=== PATIENT | male | born 1990 | race Caucasian/White ===

== ENCOUNTER 2017-03-07 22:59 | Emergency (ER) | payer OTHER ==
[~2017-03-07] VITALS: Ht 175.3 cm; Wt 92.5 kg
[~2017-03-07 22:59] MED LIST: BUPROPION XL150 MG PO; FLUOXETINE HCL20 M2 PO; LEXAPRO10 M1 PO; MULTI-DAY VITA1 EACH PO; TRAZODONE HCL150 M1 PO; VITAMIN B COMP1 EACH PO
[2017-03-07] MEDS ORDERED: PROZAC40 M1 PO (23:04)
[2017-03-07] MEDS ORDERED: TRAZODONE HCL150 M1 PO (23:04)
--- NOTE | 2017-03-07 23:06 | ED PSYCHIATRIC COMPLAINT ---
See Addendum History of Present Illness General Chief Complaint: Psychiatric Related Complaint Stated Complaint: PSYCH EVAL Source: patient Exam Limitations: poor historian Vital Signs & Intake/Output Vital Signs & Intake/Output Vital Signs Date Time Temp Pulse Resp B/P B/P Pulse O2 O2 Flow FiO2 Mean Ox Delivery Rate 03/07 2309 98.1 124 20 152/89 95 Room Air ED Intake and Output 03/08 0000 03/07 1200 Intake Total 0 Output Total Balance 0 Intake, Oral 0 Patient 204 lb Weight Weight Estimated Measurement Method Allergies Coded Allergies: NO KNOWN ALLERGIES (09/28/16) Reconcile Medications Fluoxetine HCl (Prozac) 40 MG CAPSULE 1 CAP PO DAILY MENTAL HEALTH (Reported) Trazodone HCl 150 MG TABLET 1 TAB PO QPM SLEEP (Reported) Triage Nurses Notes Reviewed? yes Onset: Abrupt Duration: unknown duration Timing: recent history HPI: 03/07/17 11:30 PM 26-year-old male presents to the emergency department for depression and suicidal ideation. According to the patient, he said that he states that he will tell people what they want to hear and then just go home and hang myself. The onset of the symptoms were abrupt, the duration is unclear, the severity is significant as his symptoms required him to come to the emergency department for care. He has associated depression and suicidal ideation. He says that he is on Prozac and trazodone, he did take it tonight. He is agitated and refusing to gown Past History Medical History Any Pertinent Medical History? see below for history Psychiatric: bipolar disease, depression Influenza Vaccine: 10/06/09 Surgical History Surgical History: non-contributory Psychosocial History Who do you live with Family Services at Home None What is your primary language [place] Family History Hx Contributory? No Review of Systems Review of Systems Constitutional: Denies: fever. EENTM: Reports: no symptoms. Respiratory: Reports: no symptoms. Cardiovascular: Reports: no symptoms. GI: Reports: no symptoms. Genitourinary: Reports: no symptoms. Musculoskeletal: Reports: no symptoms. Skin: Reports: no symptoms. Neurological/Psychological: Reports: depressed. Hematologic/Endocrine: Reports: no symptoms. Immunologic/Allergic: Reports: no symptoms. Physical Exam Physical Exam General Appearance: well developed/nourished, alert, awake, anxious, moderate distress Head: atraumatic, normal appearance Eyes: Bilateral: normal appearance, PERRL, EOMI. Ears, Nose, Throat: normal pharynx, normal ENT inspection Neck: normal inspection, supple, full range of motion Respiratory: normal breath sounds, chest non-tender, no respiratory distress Cardiovascular: regular rate/rhythm Gastrointestinal: soft, non-tender Extremities: normal range of motion Neurological/Psychiatric: awake, agitated, depressed affect Appearance/Memory/Insight: disheveled Behavoir/Eye Contact/Speech: uncooperative Thoughts/Hallucinations: no apparent hallucination Skin: intact SAD PERSONS SAD PERSONS Response Value Male Sex? yes 1 Depression/Hopelessness? yes 2 Previous Attempts/Psych Care yes 1 Excessive Ethanol/Drug Use? yes 1 Rational Thinking Loss? yes 2 Single//? yes 1 Social Support? has no support 1 Stated Future Intent? yes 2 Total 11 SAD PERSONS Done? yes Progress Differential Diagnosis: drug intoxication, drug overdose, drug withdrawal, depression Plan of Care: Orders Procedure Date/time Status Continuous Observation Monitor 03/07 2333 Active URINE DRUG SCREEN FOR ER ONLY 03/07 2333 Complete ETHANOL 03/07 2333 Complete COMPREHENSIVE METABOLIC PANEL 03/07 2333 Complete CBC WITHOUT DIFFERENTIAL 03/07 2333 Complete Laboratory Tests 03/08/17 0007: Urine Opiates Screen < 100.00, Methadone Screen < 40, Barbiturate Screen < 60, Ur Phencyclidine Scrn < 6.00, Amphetamines Screen < 100, U Benzodiazepines Scrn < 85, Urine Cocaine Screen < 50, Urine Cannabis Screen < 5.00 03/07/17 2344: Anion Gap 19 H, Estimated GFR > 60, BUN/Creatinine Ratio 11.3, Glucose 97, Calcium 9.4, Total Bilirubin 0.5, AST 22, ALT 31, Alkaline Phosphatase 103, Total Protein 8.6 H, Albumin 5.0, Globulin 3.6, Albumin/Globulin Ratio 1.4, CBC w Diff NO MAN DIFF REQ, RBC 5.34, MCV 84.4, MCH 29.6, RDW 12.7, MPV 7.9, Gran % 57.1, Lymphocytes % 30.6, Monocytes % 10.7 H, Eosinophils % 0.4, Basophils % 1.2, Absolute Granulocytes 3.5, Absolute Lymphocytes 1.9, Absolute Monocytes 0.6 , Absolute Eosinophils 0, Absolute Basophils 0.1, PUBS MCHC 35.1, Serum Alcohol 115.0 Initial ED EKG: none Departure Departure Disposition: STILL A PATIENT Condition: Stable Clinical Impression Primary Impression: Depression (emotion) Secondary Impressions: Agitation requiring sedation protocol Referrals: PATIENT HAS NO PRIMARY CARE DR (PCP/Family) Departure Forms: Customer Survey General Discharge Information
[2017-03-07 23:55] LABS: ABSOLUTE BASOPHIL COUNT 0.1 /CUMM (0.0-0.2); ABSOLUTE EOSINOPHIL COUNT 0 /CUMM (0.0-0.7); ABSOLUTE GRANULOCYTE CT 3.5 /CUMM (1.4-6.5); ABSOLUTE LYMPH COUNT 1.9 /CUMM (1.2-3.4); ABSOLUTE MONOCYTE COUNT 0.6 /CUMM (0.10-0.60); BASOPHIL % 1.2 % (0.0-2.0); EOSINOPHIL % 0.4 % (0-5); GRANULOCYTE % 57.1 % (42.2-75.2); HEMATOCRIT 45.1 % (42-52); MEAN CORPUSCULAR HGB 29.6 PG (27.0-31.0); MEAN CORPUSCULAR HGB CONC 35.1 G/DL (33.0-37.0); MEAN CORPUSCULAR VOLUME 84.4 FL (80.0-94.0); MEAN PLATELET VOLUME 7.9 FL (7.4-10.4); PLATELET COUNT 433 /CUMM (130-400); RBC DISTRIBUTION WIDTH 12.7 % (11.5-14.5); RED BLOOD CELL CT 5.34 /CUMM (4.70-6.10); WHITE BLOOD CELL COUNT 6.1 /CUMM (4.8-10.8)
--- NOTE | 2017-03-08 10:24 | ED PSY CRISIS COLLATERAL NOTE ---
Collateral Note Collateral Note Family/Inform/Rosa Contacts: This clinician spoke mother Taryn Fowler who reported she was sleeping when the suture winder hand came to her home. She reports the police responded to a 911 called placed by her son. The mother states her son called 911 and said he shot himself. She reports the son has a history of depression and (2) years ago he hung himself in the garage and the mother cut him down from the rope. She reports another suicide attempt by taking pills. She states he has been making suicidal statements " I want to " and spends alot time home alone.
--- NOTE | 2017-03-08 11:36 | ED PSYCH CRISIS CONSULTATION ---
Crisis Consult Basic Assessment Date of Consult: 03/08/17 Responsible Person/Accompanied By: self Insurance Authorization: Insurance #1: Insurance name: BARBIE NASH Phone number: Policy number: [id number] Group number: [id number] Authorization number: ED Provider: Patient's ED Provider: BUSHRA LATIF DO Primary Care Physician: Patient's PCP: PATIENT HAS NO PRIMARY CARE DR PCP's Phone Number: Current Psychiatrist: Dr. Virginia Yadav Chief Complaint: Psychiatric Related Complaint Patient's Quote: " I want to go home" Present Illness: Pt is a 26-year-old male BIBA on a Police Emergency Examination Request. The Pt called 911 to and stated he was shot; the police arrived to the home and the Pt was not shot. The Pt then asked the police matron to shoot him. He presents to the emergency department for depression and suicidal ideation. The Pt stated to the nursing department he will tell crisis he is fine, so he can be discharged and once he gets home, he will hang himself. The Pt upon interview denied any suicidal ideation, homicidal ideation, denied auditory and visual hallucination. He reports he was just playing with the precise winder. He reports drinking Alcohol last night and denies any other current substance abuse problem. He reports a history of abusing Cannabis abuse. He is very anxious to be discharge from the hospital. He reports a history of (2) previous suicide attempts. According to collateral mother Taryn Fowler the Pt attempted to hang himself (2) years ago and the mother had to cut him down from the rope. The Pt reports being treated at the [facility] for Bipolar and Depression. Patient's Address: [address] [place] [address] Other Phone Number: Who Do You Live With? Family Family/Informants Interviewed: mother Taryn Fowler [phone] Allergies - Coded Allergies: NO KNOWN ALLERGIES (09/28/16) Current Medications - Scheduled Medications Fluoxetine HCl (Prozac) 40 MG CAPSULE 1 CAP PO DAILY MENTAL HEALTH (Reported) Entered as Reported by VLAD BURTON on 03/07/17 2767 Trazodone HCl 150 MG TABLET 1 TAB PO QPM SLEEP (Reported) Entered as Reported by VLAD BURTON on 03/07/17 2304 Laboratory Results: Laboratory Tests 03/08/17 0007: Urine Opiates Screen < 100.00, Methadone Screen < 40, Barbiturate Screen < 60, Ur Phencyclidine Scrn < 6.00, Amphetamines Screen < 100, U Benzodiazepines Scrn < 85, Urine Cocaine Screen < 50, Urine Cannabis Screen < 5.00 03/07/17 2344: Anion Gap 19 H, Estimated GFR > 60, BUN/Creatinine Ratio 11.3, Glucose 97, Calcium 9.4, Total Bilirubin 0.5, AST 22, ALT 31, Alkaline Phosphatase 103, Total Protein 8.6 H, Albumin 5.0, Globulin 3.6, Albumin/Globulin Ratio 1.4, CBC w Diff NO MAN DIFF REQ, RBC 5.34, MCV 84.4, MCH 29.6, RDW 12.7, MPV 7.9, Gran % 57.1, Lymphocytes % 30.6, Monocytes % 10.7 H, Eosinophils % 0.4, Basophils % 1.2, Absolute Granulocytes 3.5, Absolute Lymphocytes 1.9, Absolute Monocytes 0.6 , Absolute Eosinophils 0, Absolute Basophils 0.1, PUBS MCHC 35.1, Serum Alcohol 115.0 (BRANDI PURNIMA,ASHLEE) Addendum Note Addendum Patient was re-interviewed this morning. As per his discussion with Dr Bradley yesterday, patient again states that he did not really mean any harm, and that he sees that it "was a really stupid thing to do", but currently wants discharge. Patient states that he knows that he should not be drinking at all, and especially on medication, but that he admits that several times per month buys shots in order to get really drunk. "It seems to take more and more as I'm a fairly big carina". 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 Patient was arrested for filing a false report, due to repoting to the police that he had been shot at, although this was not the case as does do "some stupid things when he drinks", but continues to do this. I informed patient that the psychiatrist who had seen him yesterday felt that he needed to be hospitalized, and that he is on a committment paper. I told him that it was his chance to talk with another doctor today, if he is not placed soon; but that it was highly unlikely that patient would discharged from [facility]. We have no beds here, so we are referring him to another [facility] facility. Patient had impish grin on face, as if this were a comoical situation (i.e. calling police with fase report). He is concerned about his 2 dogs at home, but he lives with brother, so the dogs will be o. k. (MODESTO MS,HEVER Meléndez) Addendum Addendum 03/09/17 Crisis Revaluation Pt presented alert, oriented and cooperative with goal directed speech. Pt reports his mood as "no longer upset" and stated he understands the need for hospitalization. The pt denies SI, HI, AH, VH and paranoia. The pt stated he is hoping for a short hospital stay. The pt has been cooperative with staff since his initial irritability upon arrival to the ED on 03/07/17. Pt lives with his mother and stated she is supportive of him and he is happy to return living with her after his discharge. Pt remains on a PEC. (ITZ RIDDLE,HEVER CHAPPELL) Addendum 03/09/17 7:00pm Pt seen by Crisis on the Evening Shift. Pt was told that the bed search had been conducted and that no hospitals had accepted him for tonight and so he would be held over in the ED until tomorrow. Pt. said that he did not want to stay until tomorrow and asked if he could be dischrged [facility]. Crisis consulted with Dr. Lara who said that due to pt's suicidal statements upon arrival to the ED and his withholding information about previous suicide attempts, he would have to stay in the ED tonight as he was still at current risk of harm to himself. Pt. said that he understood and agreed to stay. He offered no other complaints. (DIANNE MONTES DE OCA,NAYELY) Past History Past Medical History Psychiatric: bipolar disease, depression, substance abuse Past Surgical History Surgical History: non-contributory Psychosocial History Strengths/Capabilities: currently being treated in the community, supportive mother. Psychiatric Treatment History Psych Treatment Psychiatric Treatment Yes Inpatient Treatment No Outpatient Treatment Yes Location of Treatment [place] Reason for Treatment Bipolar Disorder and Depression Dates of Treatment currently being treated at [facility] Response to Treatment poor Diagnosis by History: Depression Disorder Substance Use/Abuse History Drug Use/Abuse Substances Used/Abused Yes Substance Used/Abused Alcohol First Use 16 Last Used 03/07/2017 How much used/taken unknown How often unknown For how long unknown Route of use oral Substance Abuse Treatment Substance Abuse Treatment Past Substance Abuse TX No Inpatient Treatment No Outpatient Treatment No Location of Treatment none Reason for Treatment none Dates of Treatment none Response to Treatment none (ASHLEE CAMACHO) Current Mental Status Mental Status Orientation: Person, Place, Situation Affect: Anxious, Angry, Depressed Speech: Pressured Neuro-vegetative: Appetite Decreased Appearance Appearance- Dress/Hygiene: Dressed in hospital clothing Behaviors Thought Process: WNL Thought Content: WNL Memory: WNL Insight: Poor SI/HI Risk Assessment Past Suicidal Ideation/Attempts Yes Current Suicidal Ideation/Att Yes Past Homicidal Ideation/Att: No Current Homicidal Ideation/Attempts No Degree of Intent: Plan, States Intent Danger To: Self Gravely Disabled: Lack of Insight, Poor Impulse Control, Poor Judgment Risk Factors: high anxiety/distress, history of suicide atmpts, SA/MH hospitalized, substance abuse, poor impulse control Lethality Ratin PTSD Checklist PTSD Score: PTSD Score: Response Value Disturbing memories,thoughts,images of stressful experience? Not at all 1 Disturbing dreams of stressful experience from past? Not at all 1 Suddenly acting/feeling as if reliving stressful experience? Not at all 1 Total 3 PTSD Done? patient declined ED Management Sitter: Yes Restraints: No (ASHLEE CAMACHO) DSM5/PS Stressors/Medical Prob Diagnosis' (DSM 5, Stressors, Medical): Depression Disorder Unspecified F32.9 Current GAF: 25 (ASHLEE CAMACHO) Departure Disposition Psych Medical Clearance Date: 03/08/17 Medically Cleared at: 1000 Time Started: 1000 Time Ended: 1100 Psychiatrist Consulted: Dr. Virginia Davison Date Disposition Established: 03/08/17 Time Disposition Established: 1100 Plan for Disposition - Modality: Bed Search Rationale for Disposition: Pt is a 26-year-old male BIBA on a Police Emergency Examination Request. The Pt called 911 to and stated he was shot; the police arrived to the home and the Pt was not shot. The Pt then asked the police matron to shoot him. He presents to the emergency department for depression and suicidal ideation. The Pt stated to the nursing department he will tell crisis he is fine, so he can be discharged and once he gets home, he will hang himself. The Pt upon interview denied any suicidal ideation, homicidal ideation, denied auditory and visual hallucination. He reports he was just playing with the precise winder. He reports drinking Alcohol last night and denies any other current substance abuse problem. He reports a history of abusing Cannabis abuse. He is very anxious to be discharge from the hospital. He reports a history of (2) previous suicide attempts. According to collateral mother Taryn Fowler the Pt attempted to hang himself (2) years ago and the mother had to cut him down from the rope. The Pt reports being treated at the [facility] for Bipolar and Depression. Consulted with Dr. Virginia Yadav for inpatient psychiatric treatment . Type of IP Admission: PEC Referrals PATIENT HAS NO PRIMARY CARE DR (PCP/Family) (ASHLEE CAMACHO)
--- NOTE | 2017-03-09 17:21 | ED PSYCHIATRIST/APRN CONSULT ---
Psychiatrist/BEHAVIORAL THERAPIST ED Consult Assessment and Plan: Patient seen 03/08 and 03/09. Note for 03/08: 26 y/o man w/ hx depressive illness, admitted after he had called police and stated that he was shot. He state that he was "joking" b/c he was so intoxicated and did not mean anything. He was brought in for suicidla thinking. He had told nurse on admission that he will say what he has to and then hang himself. He was intoxicated on admission. He stated that he generally binge drinks a few times per month but does not regularly drink. He stated that he has been doing well otherwise and minimized/denied any other sx. Per collateral, he had a serious suicide attempt where he tried to hang self and mother had to cut him down in the past. He also had past psychiatric tx. He has been on trileptal 600mg twice daily, prozac in the past. He stated that he "didnt mean" anything and continued to deny any SI. Due to his high risk history and statements about wanting to hang self, telling police he wanted to commit suicide, recent etoh and poor outpatient adherence to tx, poor frustration tolerance and impaired impulse control (he was very irritable in the ER and needed medication), consider that he is at risk of violence to self and need IP admission. Re- started trileptal 150mg twice daily and prozac; started ciwa scale. Note 03/09: Patient re-evaluated. His mental status appeared similar, future oriented, denying any past mental health sx and minimizing recent events, denying active sx. He stated that he has court tmr and needs to go; that he needs to feed his dog (brother is caring for dog) but did admit that he made a mistake and would benefit from tx. He has had no further behavior issues since being in the ER. His MSE is significant for irritability which is mild, but otherwise goal directed, linear and without overt psychotic sx. We discussed his behavior and recent clinical status - discussed that his behavior has been erratic, has had serious suicide attempt and etoh use which increases his risk of self harm. He continued to deny making any statements and denied current suicidal thoughts. Discussed a brief admission to stabilize his recent decomp precipitated by alcohol use and several days med non adherence; with re-eval tmr for baseline status from mother and perhaps an outpatient provider. Will increase trileptal to 300mg twice daily.
[2017-03-10 18:39] VITALS: BP 119/76
[2017-04-30] MEDS ORDERED: OXCARBAZEPINE600 M1 PO (14:04)
[2017-04-30] MEDS ORDERED: OXCARBAZEPINE300 M1 PO (14:04)
[2017-04-30] MEDS ORDERED: BUPROPION XL150 MG PO (14:04)
[2017-04-30] MEDS ORDERED: AUGMENTIN 875-1 EACH PO (15:20)
[2017-04-30] MEDS ORDERED: OXYCODONE HCL5 M1 PO (15:20)
[2017-04-30] MEDS ORDERED: NAPROSYN500 M1 PO (17:47)
== END 2017-03-10 19:21 | disposition other institution (70) ==
LOC: ERH 22:59
PROVIDERS: Emergency Medicine
DX: F32.9 Major depressive disorder, single episode, unspecified (principal); R45.1 Restlessness and agitation; R45.851 Suicidal ideations
CPT/HCPCS: 80307; 96372; 99291; G0463; G0480; J1200; J1630

== ENCOUNTER 2017-12-17 15:42 | Inpatient (IN) | payer OTHER ==
[~2017-12-17] VITALS: Ht 180.3 cm; Wt 116.7 kg
[~2017-12-17 15:42] MED LIST changes: +AUGMENTIN 875-1 EACH PO; +NAPROSYN500 M1 PO; +OXCARBAZEPINE300 M1 PO; +OXCARBAZEPINE600 M1 PO; +OXYCODONE HCL5 M1 PO; +PROZAC40 M1 PO
--- NOTE | 2017-12-17 16:05 | ED PSYCHIATRIC COMPLAINT ---
History of Present Illness General Chief Complaint: Psychiatric Related Complaint Stated Complaint: BIBA, +SI Source: patient Exam Limitations: no limitations Vital Signs & Intake/Output Vital Signs & Intake/Output Vital Signs Date Time Temp Pulse Resp B/P B/P Pulse O2 O2 Flow FiO2 Mean Ox Delivery Rate 12/18 1046 97.8 80 20 142/65 96 Room Air 12/18 0849 98.2 90 18 114/71 96 Room Air 12/18 0556 97.3 74 20 117/58 98 Room Air 12/17 2141 98.1 96 18 146/91 12/17 2141 97.8 96 18 146/91 96 Room Air 12/17 1556 98.3 93 16 147/90 98 Room Air ED Intake and Output 12/18 0000 12/17 1200 Intake Total 0 Output Total Balance 0 Intake, Oral 0 Allergies Coded Allergies: NO KNOWN ALLERGIES (09/28/16) Triage Note: PT BIBA ON A PEER. PER EMS REPORT PT "WALKED OUT OF [facility] MAKING SUICIDAL COMMENTS". PER EMS REPORT PT HAS HX OF ETOH ABUSE AND RELAPSED TODAY. PT ARRIVES CALM AND COOPERATIVE. A&OX3 SPEAKING IN FULL COMPLETE SENTNCES. CHANGED INTO PAPER SCRUBS. WANDED BY SECURITY. BELONGINGS SECURED. PEER PLACED IN CAROLIN BOX TWO COPIES PLACED IN CHART. Triage Nurses Notes Reviewed? yes Onset: Gradual Duration: week(s): Timing: recent history Severity: mild HPI: 27yo male with hx of bipolar disease, depression BIBA on PEER complaining of suicidal ideation. Patient states that he was recently in a two-month program for alcohol abuse and was sober throughout program. Patient had a schedule appointment with a new provider today. Patient recently relapsed on drinking alcohol over the weekend because it was his birthday. He informed new provider that he had suicidal ideation and it was recommended that he come here to the ER. Patient went home and was brought in by police for his SI. Patient reports he has had suicidal ideation 4 weeks, he states he has no real suicidal intent, he has no plans and does not ever believe he would act on any plans. Patient does report one prior suicide attempt however he does not wish to discuss details at this time. Patient denies HI, or illicit drug use, recent illness. (Yocasta CRAVEN,Chioma Hernandez) Reconcile Medications Bupropion HCl (Bupropion XL) 150 MG TAB.ER.24H 1 TAB PO DAILY MENTAL HEALTH ( Reported) Fluoxetine HCl (Prozac) 40 MG CAPSULE 1 CAP PO DAILY MENTAL HEALTH (Reported) Oxcarbazepine 600 MG TABLET 1 TAB PO DAILY MENTAL HEALTH (Reported) Oxcarbazepine 300 MG TABLET 3 TAB PO QPM MENTAL HEALTH (Reported) Trazodone HCl 150 MG TABLET 1 TAB PO QPM SLEEP (Reported) (Lou GENTILE,Lavell Murray) Past History Travel History Traveled to [place] past 21 day No Medical History Any Pertinent Medical History? see below for history Psychiatric: bipolar disease, depression, substance abuse Tetanus Vaccine: 04/30/17 Surgical History Surgical History: non-contributory Psychosocial History Who do you live with Family Services at Home None What is your primary language Beninese Tobacco Use: Current Daily Use Daily Tobacco Use Amount/Type: => 5 Cigarettes daily Family History Hx Contributory? No (Chioma Carmona) Review of Systems Review of Systems Constitutional: Reports: no symptoms. EENTM: Reports: no symptoms. Respiratory: Reports: no symptoms. Cardiovascular: Reports: no symptoms. GI: Reports: no symptoms. Genitourinary: Reports: no symptoms. Musculoskeletal: Reports: no symptoms. Skin: Reports: no symptoms. Neurological/Psychological: Reports: see HPI. Hematologic/Endocrine: Reports: no symptoms. Immunologic/Allergic: Reports: no symptoms. All Other Systems: Reviewed and Negative (Chioma Carmona) Physical Exam Physical Exam General Appearance: well developed/nourished, no apparent distress, alert, awake Head: atraumatic, normal appearance Eyes: Bilateral: normal appearance. Ears, Nose, Throat: hearing grossly normal Neck: normal inspection, supple, full range of motion Respiratory: normal breath sounds, no respiratory distress, lungs clear Cardiovascular: regular rate/rhythm Gastrointestinal: normal bowel sounds, soft, non-tender, no organomegaly Extremities: normal range of motion Neurological/Psychiatric: awake, alert, normal mood/affect, calm Appearance/Memory/Insight: appropriate appearance, appropriate insight Behavoir/Eye Contact/Speech: normal speech, good eye contact Thoughts/Hallucinations: normal thought pattern, no apparent hallucination Skin: intact, normal color, warm/dry SAD PERSONS SAD PERSONS Response Value Male Sex? yes 1 Depression/Hopelessness? yes 2 Previous Attempts/Psych Care yes 1 Single//? yes 1 Social Support? has support 0 Total 5 SAD PERSONS Done? yes (Yocasta CRAVEN,Chioma Hernandez) Progress Differential Diagnosis: drug intoxication, drug overdose, drug withdrawal, electrolyte abnormality, encephalitis, suicidal ideation, depression Plan of Care: Orders Procedure Date/time Status Regular Diet 12/18 B Active Admit to inpatient psych 12/18 1103 Active Restraint- Discontinue 12/17 2252 Active Restraint- Behavioral (Renew) 12/17 2139 Active Restraint- Behavioral (Order) 12/17 1940 Active ED CRISIS PSYCH CONSULT 12/17 1734 Active ED CRISIS PSYCH CONSULT 12/17 1717 Active Continuous Observation Monitor 12/17 1604 Active URINE DRUG SCREEN FOR ER ONLY 12/17 1604 Complete ETHANOL 12/17 160 Complete COMPREHENSIVE METABOLIC PANEL 12/17 1604 Complete CBC WITHOUT DIFFERENTIAL 12/17 1604 Complete Current Medications Sig/Chiara Start time Last Medication Dose Stop Time Status Admin Bupropion HCl 300 MG 0800 / 0800 UNVr 12/18 (Wellbutrin XL) 0900 Oxcarbazepine 300 MG 0800 / 0800 UNVr 12/18 (Trileptal 150MG Tab) 0900 Oxcarbazepine 900 MG QPM 12/17 2200 UNVr 12/17 (Trileptal 150MG Tab) 2141 Prazosin HCl 2 MG AT BEDTIME 12/17 2199 UNVr 12/17 (Minipress 1 MG) 214 Trazodone HCl 75 MG AT BEDTIME 12/17 220 UNVr 12/17 (Desyrel) 2141 Gabapentin 400 MG Q8 PRN 12/17 1900 AC (Neurontin) Laboratory Tests 12/17/17 1708: Anion Gap 16, Estimated GFR > 60, BUN/Creatinine Ratio 12.9, Glucose 92, Calcium 9.9, Total Bilirubin 0.3, AST 23, ALT 33, Alkaline Phosphatase 90, Total Protein 8.0, Albumin 5.0, Globulin 3.0, Albumin/Globulin Ratio 1.7, CBC w Diff NO MAN DIFF REQ, RBC 5.19, MCV 87.2, MCH 29.3, MCHC 33.7, RDW 13.1, MPV 7.7, Gran % 56.6, Lymphocytes % 32.8, Monocytes % 9.1, Eosinophils % 1.0, Basophils % 0.5, Absolute Granulocytes 3.2, Absolute Lymphocytes 1.8, Absolute Monocytes 0.5, Absolute Eosinophils 0.1, Absolute Basophils 0, Serum Alcohol < 10.0 12/17/17 1707: Urine Opiates Screen < 100.00, Methadone Screen < 40, Barbiturate Screen < 60, Ur Phencyclidine Scrn < 6.00, Amphetamines Screen < 100, U Benzodiazepines Scrn < 85, Urine Cocaine Screen < 50, Urine Cannabis Screen < 5.00 Patient seen and evaluated by crisis and will be hold over until tomorrow morning. 1930 - patient becoming agitated, being his head against the wall, making inappropriate comments and threatening to "run naked through the ER". Patient admits to peeing on the lenz. Patient placed in restraints and medicated with IM haldol, benadryl, ativan. The patient was signed out to Dr. Ambriz pending crisis disposition. (Chioma Carmona) 1:44 AM PENDING CRISIS CONSULTATION IN AM. (Katharina Ambriz MD) Hand-Off Endorsed To: Katharina Ambriz MD Endorsed Time: 0100 Pending: other (ED hold, crisis dispo) (Chioma Carmona) Hand-Off Endorsed To: Lavell Blake MD Endorsed Time: 0700 Pending: consult (CRISIS) (Katharina Ambriz MD) Comments: 12/18/2017 7:23:21 AM patient signed out to me by Dr. Ambriz at shift change control coordinator. pt evaluated by bacteriologist fishery and felt to require admission. (Lavell Blake MD) Departure Departure Disposition: STILL A PATIENT Condition: Stable Referrals: Karrie Hernadez MD (PCP/Family) Departure Forms: Customer Survey General Discharge Information (Chioma Carmona) PA/KEY ACCOUNT DIRECTOR Co-Sign Statement Statement: ED Attending supervision documentation- [X] I saw and evaluated the patient. I have also reviewed all the pertinent lab results and diagnostic results. I agree with the findings and the plan of care as documented in the PA's/KEY ACCOUNT DIRECTOR's documentation. [X] I have reviewed the ED Record and agree with the PA's/KEY ACCOUNT DIRECTOR's documentation. [] Additions or exceptions (if any) to the PAs/KEY ACCOUNT DIRECTOR's note and plan are summarized below: [] (Katharina Ambriz MD) Departure Clinical Impression Primary Impression: Bipolar 1 disorder Secondary Impressions: Alcohol abuse, Suicidal ideation Psych Admission Note Psychiatric Admission: I have reviewed all the pertinent lab results and diagnostic results. ANA LUNA will be admitted to our inpatient Psychiatric unit for treatment and care. (Lou GENTILE,Lavell Murray) Critical Care Note Critical Care Note Critical Care Time: 30-74 min (Katharina Ambriz MD) ED Attending Observation Initial Observation Note: I have seen and personally examined ANA LUNA on 12/17/17 at 2020. I agree with the current emergency department documentation. The disposition (admission or discharge) is uncertain at this time, he needs a period of observation for the following reason(s): The ED Nurse caring for this patient has been personally informed as to what the patient is being observed for. (Katharina Ambriz MD)
[2017-12-17 17:27] LABS: ABSOLUTE BASOPHIL COUNT 0 /CUMM (0.0-0.2); ABSOLUTE EOSINOPHIL COUNT 0.1 /CUMM (0.0-0.7); ABSOLUTE GRANULOCYTE CT 3.2 /CUMM (1.4-6.5); ABSOLUTE LYMPH COUNT 1.8 /CUMM (1.2-3.4); ABSOLUTE MONOCYTE COUNT 0.5 /CUMM (0.10-0.60); BASOPHIL % 0.5 % (0.0-2.0); GRANULOCYTE % 56.6 % (42.2-75.2); HEMATOCRIT 45.2 % (42-52); MEAN CORPUSCULAR HGB 29.3 PG (27.0-31.0); MEAN CORPUSCULAR HGB CONC 33.7 G/DL (33.0-37.0); MEAN CORPUSCULAR VOLUME 87.2 FL (80.0-94.0); MEAN PLATELET VOLUME 7.7 FL (7.4-10.4); PLATELET COUNT 376 /CUMM (130-400); RBC DISTRIBUTION WIDTH 13.1 % (11.5-14.5); RED BLOOD CELL CT 5.19 /CUMM (4.70-6.10); WHITE BLOOD CELL COUNT 5.6 /CUMM (4.8-10.8)
--- NOTE | 2017-12-17 19:52 | ED PSYCH CRISIS CONSULTATION ---
Crisis Consult Basic Assessment Date of Consult: 12/17/17 Responsible Person/Accompanied By: MILDRED Insurance Authorization: Insurance #1: Insurance name: [employer] Phone number: Policy number: [id number] Group number: [id number] Authorization number: ED Provider: Patient's ED Provider: Chioma Carmona Primary Care Physician: Patient's PCP: Karrie Hernadez MD PCP's Current Psychiatrist: Karrie Hernadez MD Chief Complaint: Psychiatric Related Complaint Patient's Quote: "I feel suicidal all the time, I don'thave any plans." Present Illness: Patient is a 27 year old, single, male BIBA on a PEER for SI. He presented to OPS for an intake assessment and expressed SI during the session. Patient left OPS and 911 was called. Patient successfully completed IOP on 12/12/17 and reports relapse on alcohol on 12/13/17. Patient reports chronic SI since 10 years old. He has pending felony charges; prompting minor obscene performance and illegal possession of child pornography 1st degree. His next court date is 02/12/2018. Patient reports feeling "hopeless" due to pending charges and states "I feel disgusting." He reports worsening depression since his arrest and reports daily SI, but denies a plan. He reports relapse on alcohol; "a few beer" on his birthday. He states he uses alcohol to "not feel." Patient states he forgot to take medications today and last night. He states his block layer referred him to see Milena Corbett MD, but does not remember when his next appointment is. He states he does not feel he requires hospitalization and would like to go home. He would like support with alcohol use and willing to return to [facility]. Patient's mother, Taryn Fowler ([phone]) was contacted. She states "he's been telling me he's going to kill himself for a long time." She states the patient lives with her and his father, although patient stated he lives with his brother. Taryn states "he tells stories" and has concerns for patient's safety. She states patient attempted suicide 2 years ago by hanging himself and mother "cut him down." She states patient told her that he's going to attempt suicide again when no one is home, with wire so no one can cut him down. She also believes that his felony charges are reasons why patient is not safe and states he has made comments that if he is sentenced to fci he will kill himself first. Taryn believes patient is a harm to himself and states "I want him to go inpatient." She would like to be contacted with updates. Dr. Becerril was consulted and patient to be re-evaluated in the morning. Patient's Address: [address] [place] [address] Other Phone Number: Who Do You Live With? Family Family/Informants Interviewed: Mother, Taryn Fowler Allergies - Coded Allergies: NO KNOWN ALLERGIES (09/28/16) Laboratory Results: Laboratory Tests 12/17/17 1708: Anion Gap 16, Estimated GFR > 60, BUN/Creatinine Ratio 12.9, Glucose 92, Calcium 9.9, Total Bilirubin 0.3, AST 23, ALT 33, Alkaline Phosphatase 90, Total Protein 8.0, Albumin 5.0, Globulin 3.0, Albumin/Globulin Ratio 1.7, CBC w Diff NO MAN DIFF REQ, RBC 5.19, MCV 87.2, MCH 29.3, MCHC 33.7, RDW 13.1, MPV 7.7, Gran % 56.6, Lymphocytes % 32.8, Monocytes % 9.1, Eosinophils % 1.0, Basophils % 0.5, Absolute Granulocytes 3.2, Absolute Lymphocytes 1.8, Absolute Monocytes 0.5, Absolute Eosinophils 0.1, Absolute Basophils 0, Serum Alcohol < 10.0 12/17/17 1707: Urine Opiates Screen < 100.00, Methadone Screen < 40, Barbiturate Screen < 60, Ur Phencyclidine Scrn < 6.00, Amphetamines Screen < 100, U Benzodiazepines Scrn < 85, Urine Cocaine Screen < 50, Urine Cannabis Screen < 5.00 (Katty MONTES DE OCA,Paola) Current Medications - Scheduled Medications Bupropion HCl (Bupropion XL) 150 MG TAB.ER.24H 1 TAB PO DAILY MENTAL HEALTH # 30 (Reported) Entered as Reported by Jamison Darden on 04/30/17 1404 Fluoxetine HCl (Prozac) 40 MG CAPSULE 1 CAP PO DAILY MENTAL HEALTH (Reported) Entered as Reported by Holly Darnell on 03/07/172303 Oxcarbazepine 600 MG TABLET 1 TAB PO DAILY MENTAL HEALTH #60 (Reported) Entered as Reported by Jamison Darden on 04/30/17 140 Oxcarbazepine 300 MG TABLET 3 TAB PO QPM MENTAL HEALTH (Reported) Entered as Reported by Jamison Darden on 04/30/17 140 Trazodone HCl 150 MG TABLET 1 TAB PO QPM SLEEP (Reported) Entered as Reported by Holly Darnell on 03/07/172303 (Samy MONTES DE OCA,Myesha) Past History Past Medical History Psychiatric: bipolar disease, depression, substance abuse Past Surgical History Surgical History: non-contributory Psychosocial History Strengths/Capabilities: currently being treated in the community, supportive mother. Physical Limitations (Interventions): chronic relapse Psychiatric Treatment History Psych Treatment Psychiatric Treatment Yes Inpatient Treatment Yes Outpatient Treatment Yes Location of Treatment [facility], [facility] Reason for Treatment depression, SI Dates of Treatment hospitalized since the age 10; last hospitalization at [facility] was in 2008 Diagnosis by History: Depression Disorder Substance Use/Abuse History Drug Use/Abuse Substances Used/Abused Yes Substance Used/Abused Alcohol First Use 10 years old Last Used 12/15/17 How much used/taken "a few beers" How often daily For how long since 10 years old, some periods of sobriety Substance Abuse Treatment Substance Abuse Treatment Past Substance Abuse [place] Yes Inpatient Treatment No Outpatient Treatment Yes Location of Treatment [facility], IOP Reason for Treatment alcohol use, cannabis use Dates of Treatment [facility] IOP 10/17/17-12/12/17 Response to Treatment Positive response while in treatment, recent relapse (Paola Alaniz LCSW) Current Mental Status Mental Status Orientation: Person, Place, Situation Affect: Hopeless Speech: WNL Neuro-vegetative: Concentration Poor, Energy Decreased, Sleep Disturbance Appearance Appearance- Dress/Hygiene: Patient appeares discheveled, dressed in hospital scrubs Behaviors Thought Process: WNL Thought Content: WNL Memory: WNL Insight: Fair SI/HI Risk Assessment Past Suicidal Ideation/Attempts Yes Current Suicidal Ideation/Att Yes Past Homicidal Ideation/Att: No Current Homicidal Ideation/Attempts No Degree of Intent: Thoughts/No Intent Risk Factors: high anxiety/distress, history of suicide atmpts, SA/MH hospitalized, substance abuse, isolate/no social support, male, limited support Lethality Ratin PTSD Checklist PTSD Done? pt unable to participate ED Management Sitter: Yes Restraints: No (Paola Alaniz LCSW) DSM5/PS Stressors/Medical Prob Diagnosis' (DSM 5, Stressors, Medical): F31.4 Bipolar Disorder MRE depressed, F10.20 Alcohol use disorder, moderate, F12.11 cannabis use d/o, mild in remission 1 year; HTN, obesity; Primary and secondary relationships, employment, and weight issues, legal charges Current GAF: 25 (Paola Alaniz LCSW) Departure Disposition Psych Medical Clearance Date: 12/17/17 Medically Cleared at: 1730 Time Started: 1729 Time Ended: 1929 Psychiatrist Consulted: Rakesh Becerril MD Date Disposition Established: 12/17/17 Time Disposition Established: 1899 Plan for Disposition - Modality: hold over Facility: [facility] Rationale for Disposition: Patient BIBA on a PEER for SI. Patient reports SI daily, but denies a plan. Referrals Karrie Hernadez MD (PCP/Family) (Paola Alaniz LCSW) Addendum Addendum Crisis re-evaluated pt this am. Pt presents with flat affect, poor eye contact and poor insight into behaviors from yesterday. He admits to daily passive SI. This sports writer asked why he threatened to hang himself yesterday and he said he was drunk. However, pt's BAL was negative and UTOX was negative yesterday. This sports writer asked pt about his threatening behaviors ie. peeing on the wall, sh---ng all over the place and taking his clothes off to run in the [place] naked. Pt replied he was very upset with having to stay over night and that is why he made those comments. Pt was noted to spit on the wall and bang his head- no pee. Pt said acting out is not going to get him anywhere and he is willing to be cooperative. He is unable to provide coherent story for his actions or worsening symptoms of depression. Pt presents with poor insight/ judgement, anti-social traits, and is a risk to self at this time. Case consulted with Dr. Hernadez and recommends inpatient hospitalization for mood stabilization and safety. (Samy MONTES DE OCA,Myesha)
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
[2017-12-18 11:50] VITALS: BP 147/98
--- NOTE | 2017-12-18 12:49 | CPS PROVIDER INIT ASMT PSYCH ---
Psychiatric Admission Lead Level Designer's Note Reviewed: Yes Patient Seen and Examined: Yes Identifying Information: Patient is a 27 year old, single, male BIBA on a PEER for SI. Chief Complaint: "I feel suicidal all the time, I don't have any plans." Reaction to Hospitalization: Taran was not opposed to being admitted History of Present Illness Onset of Illness: Conflict the patient has successfully completed the intensive outpatient program at [facility] just recently and (December 12, 2017). He reported that he has been experiencing worsening of his depression since his arrest, it looks like he has pending failure felonious charges regarding the alleged position of obscene and a legal child pornography Circumstances Leading to Admission: Worsening depression and thoughts of suicide Problem(s) Justifying Need for Admission: Voicing thoughts of suicide Past Psychiatric History Past Diagnosis(es)- if any: Bipolar disorder, alcohol use disorder, cannabis use disorder, hypertension and obesity Past Precipitating Factors- if any: Substance use - Include inpatient and outpatient treatment Treatment History: The patient just recently and finished intensive outpatient program at [facility] he did have previous admissions to the inpatient psychiatric unit at [facility] as well as [facility] History of Suicide Attempts or Gestures hx two suicide attempts: 1x by hanging at age 22, 2nd by OD on psych medications Substance Abuse History: marijuana, LSD and "ICE" -"a little meth in pill form " ( ANGELA year ago), crack ( ANGELA "a couple years ago"). Attending AA/working with sponsor: not at present Cravings, close calls or relapse: reports cravings for "harder drugs when drink and get drunk" Allergies: Coded Allergies: NO KNOWN ALLERGIES (09/28/16) Home Med List: gabapentin 400 mg capsule : Take 1 capsule by mouth three times a day as needed naltrexone 50 mg tablet : Take 1 tablet by mouth once a day prazosin 1 mg capsule : Take 2 capsule by mouth at bedtime Prozac (fluoxetine) 40 mg capsule : Take 1 capsule by mouth once a day Trileptal (oxcarbazepine) 300 mg tablet : 4 tablet take 1 tablet po every morning and 3 tablets po in the evening Wellbutrin XL (bupropion hcl) 300 mg tablet extended release 24 hr : Take 1 tablet by mouth every morning Trazodone 75mg PO QHS (half of 150mg tab) as prescribed by [facility]. 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 History of MRSA: No History of VRE: No History of CDIFF: No Isolation History: Standard Tetanus Vaccine: 04/30/17 Surgical History Surgical History: non-contributory Psychiatric Family/Social Hx Family History Psychiatric Illness: Mother: Bipolar- haldol, propranolol, depakote Brother: Bipolar- depakote, lexapro, ?abilify Maternal Grandfather - Alcoholic Substance Use: Maternal Grand father : alcohol Suicides: The patient reported that there has been no suicides among his family and extended family members Social History Living Situation: Patient lives with his mother and younger brother Significant Relationships (family/friends): Mother , brother Education: GED Vocation/Occupation: Unemployed Legal: 2 arrests, currently facing feloney charges Healthly Behaviors Screening Tobacco Screening Tobacco Use from ED Docu: Current Daily Use Daily Tobacco Use Amount/Type: => 5 Cigarettes daily - If tobacco counseling indicated - the following topics are required. - #1 Recognizing dangerous situations. - #2 Coping Skills. - #3 Basic information about quitting. Status of Tobacco Cessation Counseling: #1, #2 AND #3 Completed Cessation Med Status Nicotine Gum Ordered Alcohol Screening - ETOH screen POS if BAL >=80 or Audit-C>= M4/F3 Audit-C Score from Diag Assess: 1 Blood Alcohol Level: Laboratory Tests 12/17 1708 Toxicology Serum Alcohol (<10 MG/DL) < 10.0 Alcohol Use Screening Results: Neg per Audit C &/or BAL - If ETOH counseling indicated - the following topics are required. - #1 Express concern about the patient's - drinking at unhealthy levels, include informing - of national norms for moderate drinking: - men <= 14 drinks/week, max 4 drinks/occasion - women <= 7 drinks/week, max 3 drinks/occasion - #2 Providing feedback, including linking alcohol to - negative physical effects (liver injury, hypertension) - negative emotional effects (relationship problems and - depression) - negative occupational consequences (reduced work - performance) - #3 Advising the patient to abstain from alcohol or - to drink below national norms for moderate drinking - (as listed above). Status of ETOH Use Counseling: #1, #2 AND #3 Completed. Metabolic Screening - Screen if on a Neuroleptic Medication - Metabolic screening should include: - Blood Pressure, BMI, Glucose or Hgb A1c, & a - Lipid profile from within the past 365 days. Metabolic Screening X Not Applicable, patient not on a neuroleptic. Exam and Plan Mental Status Examination Ambulation Status: Fully mobile with steady gait Appearance: Unremarkable Attitude towards examiner: Cooperative Psychomotor activity: Normal psychomotor activity Behavior: No bizarre or abnormal behaviors Quality of speech: Normal speech, no slurring, not pressured Affect: Constricted Mood: Depressed and anxious Suicidal Ideation: Denied suicidal ideation Homicidal Ideation: Denied homicidal ideation Hallucinations: Denied hallucinations Paranoid/Delusional Material: Denied feeling paranoid, there were no delusions Difficulties with thought organization: No difficulties with thought organization Insight: Seems to have good insight Judgment: Seems to have good judgment Orientation: Oriented to time place and person Cognition: No significant deficits in cognition Memory Function: No significant deficits in memory Estimate of intellectual functioning: Average Assets/Strengths Patient Identified Assets/Strengths: Patient has a supportive family Impression/Plan Impression and Plan: 27-year-old single white male who was brought in to the emergency department by ambulance on police emergency examination request. He reportedly presented with thoughts of suicide. This may be related to him facing significant filler felony charges. He also reported reported relapse to alcohol on December 13, 2017. He reported worsening depression since his arrest - Include all active medical diagnosis that require tx DSM 5 Diagnosis(es): By history only bipolar disorder Alcohol use disorder Cannabis use disorder in remission - Initial Tx Plan for Active Psych & Medical Conditions Treatment Plan: Inpatient psychiatric care, 15 minute checks, nursing assessments education on vital signs by the nursing staff Group therapy and milieu therapy Continue medications as per IOP Aftercare planning and discharge planning by social work Patient will be evaluated daily by a psychiatrist - Factors that would help patient function - in a less restrictive setting. Factors: Resolution of legal issues as well as abstinence from alcohol
[2017-12-18 15:43] VITALS: BP 146/88
[2017-12-18 15:47] VITALS: BP 146/88
--- NOTE | 2017-12-18 18:56 | History & Physical ---
General Information and HPI MD Statement: I have seen and personally examined ANA LUNA and documented this H&P. The patient is a 27 year old M who presented with a patient stated chief complaint of brought in by ambulance with suicidal ideations on a PEER.]. Source of Information: patient Exam Limitations: no limitations History of Present Illness: 27-year-old white male in to the outpatient clinic for an intake was making suicidal comments and he left. The police was called and the patient was brought in by ambulance. Has history of alcohol abuse and relapsed recently also has a history of bipolar disorder and depression the patient is admitted for evaluation and treatment Allergies/Medications Allergies: Coded Allergies: NO KNOWN ALLERGIES (09/28/16) Home Med list Bupropion HCl (Bupropion XL) 150 MG TAB.ER.24H 1 TAB PO DAILY MENTAL HEALTH ( Reported) Fluoxetine HCl (Prozac) 40 MG CAPSULE 1 CAP PO DAILY MENTAL HEALTH (Reported) Oxcarbazepine 600 MG TABLET 1 TAB PO DAILY MENTAL HEALTH (Reported) Oxcarbazepine 300 MG TABLET 3 TAB PO QPM MENTAL HEALTH (Reported) Trazodone HCl 150 MG TABLET 1 TAB PO QPM SLEEP (Reported) Compliance With Home Meds: UNKNOWN Past History Travel History Traveled to [place] past 21 day No Medical History Neurological: NONE EENT: NONE Cardiovascular: hypertension Respiratory: NONE Gastrointestinal: NONE Hepatic: NONE Renal: NONE Musculoskeletal: NONE Psychiatric: bipolar disease, depression, substance abuse Endocrine: NONE Blood Disorders: NONE Cancer(s): NONE 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 Home Services at Home: None Employment History Employment Unemployed Profession/Employer NA Review of Systems Review of Systems Constitutional: Reports: see HPI. Exam & Diagnostic Data Last 24 Hrs of Vital Signs/I&O Vital Signs Date Time Temp Pulse Resp B/P B/P Pulse O2 O2 Flow FiO2 Mean Ox Delivery Rate 12/18 1547 100 146/88 12/18 1543 100 146/88 12/18 1150 98.2 92 147/98 12/18 1046 97.8 80 20 142/65 96 Room Air 12/18 0849 98.2 90 18 114/71 96 Room Air 12/18 0556 97.3 74 20 117/58 98 Room Air 12/17 2141 98.1 96 18 146/91 12/17 2141 97.8 96 18 146 96 Room Air Intake & Output 12/18 1600 12/18 0800 12/18 0000 Intake Total Output Total Balance Patient 257 lb Weight Physical Exam General Appearance Alert, Oriented X3, Cooperative, No Acute Distress Skin No Rashes, No Breakdown, No Significant Lesion HEENT PERRLA, EOMI, Mucous Membr. moist/pink Neck Supple, No JVD, No thryomegaly, +2 Carotid Pulse wo Bruit, No LAD Lymphatic Axillary nl, Cervical nl Cardiovascular Regular Rate, No Murmurs Lungs Clear to Auscultation, Normal Air Movement Abdomen Soft, No Tenderness, No Hepatospenomegaly Neurological Exam Findings: Normal Gait, Normal Speech, Strength at 5/5 X4 Ext, Normal Tone, Sensation Intact, Cranial Nerves 3-12 NL, Reflexes 2+ Cranial Nerves II through XII: Intact Extremities No Cyanosis, No Edema, Normal Pulses Vascular Normal Pulses, Pulses Symmetrical Last 24 Hrs of Labs/Cameron: Laboratory Tests 12/17/171707: Anion Gap 16, Estimated GFR > 60, BUN/Creatinine Ratio 12.9, Glucose 92, Calcium 9.9, Total Bilirubin 0.3, AST 23, ALT 33, Alkaline Phosphatase 90, Total Protein 8.0, Albumin 5.0, Globulin 3.0, Albumin/Globulin Ratio 1.7, CBC w Diff NO MAN DIFF REQ, RBC 5.19, MCV 87.2, MCH 29.3, MCHC 33.7, RDW 13.1, MPV 7.7, Gran % 56.6, Lymphocytes % 32.8, Monocytes % 9.1, Eosinophils % 1.0, Basophils % 0.5, Absolute Granulocytes 3.2, Absolute Lymphocytes 1.8, Absolute Monocytes 0.5, Absolute Eosinophils 0.1, Absolute Basophils 0, Serum Alcohol < 10.0 12/17/171706: Urine Opiates Screen < 100.00, Methadone Screen < 40, Barbiturate Screen < 60, Ur Phencyclidine Scrn < 6.00, Amphetamines Screen < 100, U Benzodiazepines Scrn < 85, Urine Cocaine Screen < 50, Urine Cannabis Screen < 5.00 Diagnostic Data ITS Data Unobtainable at this time Assessment/Plan As Ranked By This Provider Problem List: 1. Bipolar 1 disorder 2. Alcohol abuse 3. Suicidal ideation Miscellaneous Miscellaneous Documentation Attending Case Discussed With: Karrie Hernadez MD Primary Care Physician: Karrie Hernadez MD Patient sees these Specialists Psychiatry Level of Patient Care: Dustin Consults Needed: Consulting Specialty: Psychiatry Consulting Physician: Karrie Hernadez MD Reason for Consult: suicidal ideations and depression
[2017-12-18 19:53] VITALS: BP 150/90
[2017-12-18 19:56] VITALS: BP 150/90
[2017-12-19 07:49] VITALS: BP 133/79
[2017-12-19 07:50] VITALS: BP 133/79
[2017-12-19 12:24] VITALS: BP 142/83
--- NOTE | 2017-12-19 12:24 | CP SOUTH PROGRESS NOTE PSYCH ---
Psych (Inpt) Progress Note Progress Note Taran is a 27-year-old single White male admitted after his outpatient intake appointment. Taran just recently completed the intensive outpatient program ( IOP) at [facility] on December 12, 2017. The day after was his Birthday and he drank. He reported that he was guilt-ridden about relapse as well as feeling very alone after discharge from [facility] Mental Status Examination Fully mobile with steady gait, may have low average intelligence or borderline intellectual abilities, Cooperative, friendly, normal psychomotor activity, no bizarre or abnormal behaviors, normal speech: no slurring, not pressured, good range of affect, mood is okay today/denied feeling depressed, still feeling anxious, denied suicidal ideation, denied homicidal ideation, denied hallucinations, denied feeling paranoid, there were no delusions, no difficulties with thought organization, seems to have good insight, may have chronic impairments in judgment, oriented to time place and person, no significant deficits memory Impression and Plan: By history only bipolar disorder Alcohol use disorder Cannabis use disorder in remission F88: Global Developmental Delay Treatment Plan: Increase Prozac to 60 mg daily (for the long-term management of anxiety as well as depression) Continue Trileptal 300 mg AM and 900 mg at bedtime Continue Trazodone 75 mg at bedtime Inpatient psychiatric care, 15 minute checks, nursing assessments education on vital signs by the nursing staff, Group therapy and milieu therapy, Aftercare planning and discharge planning by social work, patient will be evaluated daily by a psychiatrist
--- NOTE | 2017-12-19 15:56 | SOCIAL WORKER PROG NOTE PSYCH ---
Social Work Progress Note Progress Note Taran met with me this afternoon. He reported that he hasn't slept well. He reports that he typically works overnights 10pm-6am at [employer] and his schedule is thrown off right now. I asked if he reported to his employer that he would be out of work right now? He said he had his Brother call. He said talked about how he got to the hospital due to OPS wanting his suicidality to be assessed further. He reports that he was drinking that morning of his appt. and that is most likely what contributed to his mood being off. He stated he drank vodka and orange juice at 9am and then had a beer and took a nap before his 2pm appt. He initially reported that he was intoxicated. I confronted that by stating his BAL was negative in the ER. He said he wasn't sure why. He stated that he doesn't feel depressed and doesn't feel suicidal. He does acknowledge that he has a drinking problem. He reports he has been drinking since age 10 and that it helps him with anxiety and helps him sleep. He openly admits to enjoying drinking, but also identifies reasons to stop. He said he would like to go back to school and he spends too much money at the liquor store. He has been involved with , but does not have a sponsor. He is open to the idea of returning to . He has only been to a few meetings, the last one being in early November. When I asked if had tx for drinking in the past, he reported being on Naltrexone. After more questioning he then stated he had not been taking it for a couple of weeks. He said his medications usually help him with his symptoms, for which I confronted him about as he told me that he was self medicating with alcohol. He says he does want help with his drinking. He talked about attending [facility] for 2 months and reported benefiting and liking it. He would like to go back if possible. He reports he made friends there and felt supported. He has a previous hx with [facility] from [id number]. I asked about his legal involvement. He reported that he is on probation with Tomas Burr from [employer]. He was open to signing a release for his PO. He also signed a release for his parents, but stated he only wanted his Father in for a family meeting. Reports Mom has her own mental health issues and he would like to keep her involved to a minimum. He asked if he would be here long ? I told him that he would be here through the weekend and tht we would assess things Friday. I also told him I would like to schedule a family meeting for Friday. Called Taran's Father and scheduled a family meeting for Friday at 1pm. Called Taran's Mother back, who had left a message earlier in the day. I called her and gave her an update. She is very difficult to understand on the phone, most likely due to a disability/ medical condition of some kind.
[2017-12-19 16:12] VITALS: BP 144/59
[2017-12-19 19:55] VITALS: BP 145/87
[2017-12-20] VITALS (8 sets, daily range): BP systolic 131–143; BP diastolic 75–84
--- NOTE | 2017-12-20 11:29 | CP SOUTH PROGRESS NOTE PSYCH ---
Psych (Inpt) Progress Note Progress Note Include the following elements, when applicable: Involvement in the active treatment of the patient with behavioral observations of the patient and the patient's response to the treatment. Review of the ongoing treatment process in the context of the treatment plan. Indication of how multi-disciplinary staff members are carrying out the treatment plan. Plans for future interventions and recommendations for revision of the treatment plan. Liaison with other physicians/providers. Progress Note: Pt notes that having difficulty with sleep as used to working nights. He recounted the events leading him to be hospitalized. He was visited by father who dropped of some clothing. Feels that though parents are supportive, they do not really understand what he is going through. Denies SI or HI. Current Medications Sig/Chiara Start time Last Medication Dose Route Stop Time Status Admin Acetaminophen 650 MG Q4P PRN 12/18 1300 AC PO Al Hydroxide/Mg 30 ML Q4-6 PRN PRN 12/18 1300 AC Hydroxide PO Bupropion HCl 300 MG 0800 12/18 0800 AC 12/20 PO 0829 Fluoxetine HCl 60 MG DAILY 12/19 1000 AC 12/20 PO 0829 Gabapentin 400 MG .STK-MED ONE 12/19 2159 DC PO 12/19 2200 Gabapentin 400 MG Q8 PRN 12/17 1900 AC 12/19 PO 2159 Magnesium Hydroxide 30 ML AT BEDTIME PRN 12/18 1300 AC PO Melatonin 3 MG AT BEDTIME 12/20 2200 UNVr PO Nicotine 21 MG DAILY 12/19 1000 AC 12/20 TOP 0829 Nicotine 2 MG Q2 HRS NEEDED PRN 12/18 1415 AC 12/20 PO 0832 Oxcarbazepine 300 MG 0800 12/18 0800 AC 12/20 PO 0829 Oxcarbazepine 900 MG QPM 12/17 2200 AC 12/19 PO 2157 Trazodone HCl 75 MG AT BEDTIME 12/17 2200 AC 12/19 PO 2158 Laboratory Tests 12/17 12/17 1708 1707 Chemistry Sodium (137 - 145 mmol/L) 144 Potassium (3.5 - 5.1 mmol/L) 4.5 Chloride (98 - 107 mmol/L) 103 Carbon Dioxide (22 - 30 mmol/L) 25 Anion Gap (5 - 16) 16 BUN (9 - 20 mg/dL) 9 Creatinine (0.7 - 1.2 mg/dL) 0.7 Estimated GFR (>60 ml/min) > 60 BUN/Creatinine Ratio (7 - 25 %) 12.9 Glucose (65 - 99 mg/dL) 92 Calcium (8.4 - 10.2 mg/dL) 9.9 Total Bilirubin (0.2 - 1.3 mg/dL) 0.3 AST (17 - 59 U/L) 23 ALT (21 - 72 U/L) 33 Alkaline Phosphatase (< 127 U/L) 90 Total Protein (6.3 - 8.2 g/dL) 8.0 Albumin (3.5 - 5.0 g/dL) 5.0 Globulin (1.9 - 4.2 gm/dL) 3.0 Albumin/Globulin Ratio (1.1 - 2.2 %) 1.7 Hematology CBC w Diff NO MAN DIFF REQ WBC (4.8 - 10.8 /CUMM) 5.6 RBC (4.70 - 6.10 /CUMM) 5.19 Hgb (14.0 - 18.0 G/DL) 15.2 Hct (42 - 52 %) 45.2 MCV (80.0 - 94.0 FL) 87.2 MCH (27.0 - 31.0 PG) 29.3 MCHC (33.0 - 37.0 G/DL) 33.7 RDW (11.5 - 14.5 %) 13.1 Plt Count (130 - 400 /CUMM) 376 MPV (7.4 - 10.4 FL) 7.7 Gran % (42.2 - 75.2 %) 56.6 Lymphocytes % (20.5 - 51.1 %) 32.8 Monocytes % (1.7 - 9.3 %) 9.1 Eosinophils % (0 - 5 %) 1.0 Basophils % (0.0 - 2.0 %) 0.5 Absolute Granulocytes (1.4 - 6.5 /CUMM) 3.2 Absolute Lymphocytes (1.2 - 3.4 /CUMM) 1.8 Absolute Monocytes (0.10 - 0.60 /CUMM) 0.5 Absolute Eosinophils (0.0 - 0.7 /CUMM) 0.1 Absolute Basophils (0.0 - 0.2 /CUMM) 0 Toxicology Urine Opiates Screen (>2000 NG/ML) < 100.00 Methadone Screen (>300 NG/ML) < 40 Barbiturate Screen (>200 NG/ML) < 60 Ur Phencyclidine Scrn (>25 NG/ML) < 6.00 Amphetamines Screen (>1000 NG/ML) < 100 U Benzodiazepines Scrn (>200 NG/ML) < 85 Urine Cocaine Screen (>300 NG/ML) < 50 Urine Cannabis Screen (>50 NG/ML) < 5.00 Serum Alcohol (<10 MG/DL) < 10.0 Vital Signs Date Time Temp Pulse Resp B/P B/P Pulse O2 O2 Flow FiO2 Mean Ox Delivery Rate 12/20 0811 98.0 81 131/75 12/20 0800 98.0 81 131/75 12/19 1955 98.3 69 145/87 12/19 1612 81 144/59 12/19 1224 83 142/83 MSE General appearance: good hygiene and grooming; Attitude: cooperative; Eye contact: appropriate; Movement: no psychomotor agitation or slowing; Speech: nl fluency, nl rate/rhythm, nl volume, nl prosody; Mood: "tired" Affect: flat, appropriate, constricted, non-labile, congruent; Thought process: linear and goal-directed; Thought content: denied SI or HI, no paranoid ideation; Perception: denied hallucinations- auditory, visual, does not appear to be responding to internal stimuli; I/J: limited A/P: Pt with bipolar disorder and AUD with improved mood though still struggling with sleep. 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
[2017-12-21] VITALS (8 sets, daily range): BP systolic 131–151; BP diastolic 66–82
--- NOTE | 2017-12-21 12:31 | CP SOUTH PROGRESS NOTE PSYCH ---
Psych (Inpt) Progress Note Progress Note Include the following elements, when applicable: Involvement in the active treatment of the patient with behavioral observations of the patient and the patient's response to the treatment. Review of the ongoing treatment process in the context of the treatment plan. Indication of how multi-disciplinary staff members are carrying out the treatment plan. Plans for future interventions and recommendations for revision of the treatment plan. Liaison with other physicians/providers. Progress Note: Pt requested for wellbutrin to be discontinued. Explained would reduce but not discontinue. He bedrugingly agreed to this. This morning, there were some conflict between himself and another peer. HE was upset and took gabapentin PRN and calmed. This was the peer that he referred to a "a good friend" yesterday. Denies SI or HI. Current Medications Sig/Chiara Start time Last Medication Dose Route Stop Time Status Admin Acetaminophen 650 MG Q4P PRN 12/18 1300 AC 12/20 PO 1222 Al Hydroxide/Mg 30 ML Q4-6 PRN PRN 12/18 1300 AC Hydroxide PO Bupropion HCl 150 MG 12/22 0800 UNVr PO Bupropion HCl 300 MG 0800 12/18 0800 DC 12/21 PO 0845 Fluoxetine HCl 60 MG DAILY 12/19 1000 AC 12/21 PO 0845 Gabapentin 400 MG .STK-MED ONE 12/20 214 DC PO 12/20 2146 Gabapentin 400 MG Q8 PRN 12/17 1900 AC 12/21 PO 0916 Magnesium Hydroxide 30 ML AT BEDTIME PRN 12/18 1300 AC PO Melatonin 3 MG AT BEDTIME 12/20 2200 AC 12/20 PO 2144 Nicotine 21 MG DAILY 12/19 1000 AC 12/21 TOP 0845 Nicotine 2 MG Q2 HRS NEEDED PRN 12/18 1415 AC 12/21 PO 1220 Oxcarbazepine 300 MG 0800 12/18 0800 AC 12/21 PO 0845 Oxcarbazepine 900 MG QPM 12/17 2200 AC 12/20 PO 2144 Trazodone HCl 75 MG AT BEDTIME 12/17 2200 AC 12/20 PO 2144 Vital Signs Date Time Temp Pulse Resp B/P B/P Pulse O2 O2 Flow FiO2 Mean Ox Delivery Rate 12/21 1224 80 131/66 12/21 1211 80 131/66 12/21 0834 97.8 90 145/75 02/04 0737 97.8 90 145/75 02/03 1910 97.7 77 143/83 02/ 1908 97.7 77 143/83 02/ 1622 75 140/81 02/03 1607 75 140/81 MSE General appearance: good hygiene and grooming; Attitude: cooperative; Eye contact: appropriate; Movement: no psychomotor agitation or slowing; Speech: nl fluency, nl rate/rhythm, nl volume, nl prosody; Mood: "I want off the wellbutrin" Affect: flat, appropriate, constricted, non-labile, congruent; Thought process: linear and goal-directed; Thought content: denied SI or HI, no paranoid ideation; Perception: denied hallucinations- auditory, visual, does not appear to be responding to internal stimuli; I/J: limited A/P: Pt with bipolar disorder and AUD with improved mood though still struggling with sleep. - Reduced wellbutrin XL to 150mg given pt concerns about contributing to wakefulness -Otherwise continue current medication regimen -Encourage integration into the milieu
[2017-12-22 08:34] VITALS: BP 141/76
[2017-12-22 08:35] VITALS: BP 141/76
[2017-12-22 12:35] VITALS: BP 145/76
[2017-12-22 12:36] VITALS: BP 145/76
--- NOTE | 2017-12-22 13:17 | SOCIAL WORKER PROG NOTE PSYCH ---
Social Work Progress Note Progress Note Meeting held with Taran and his Father. Dr. Castillo was also in attendance. Dad explained that he doesn't technically live with Jf, but he stays at the house often. Asked if he had any safety concerns about Jf? He stated he talks about ending his life and has had a couple of attempts, but he doesn't think he will kill himself. Asked if he had concerns related to him leaving the hospital today? He did not. Talked about follow up at [facility]. Informed him that I have scheduled an intake for 10am tomorrow. Asked Dad if he was concerned about Taran's drinking? He said "I wish he wouldn't, but I can't stop him." Jf stated he only drank on his birthday and that it wasn't days of drinking. Taran will discharge today and go home with his Dad. After the meeting, Taran was upset stating he felt embarrassed by his Father. His Dad appears to have his own mental health issues, but doesn't get help. This is stressful to Taran. He stated he really should process more about his family life with a therapist in the future. Encouraged him to set up individual therapy after his completion of IOP.
[2017-12-22] MEDS ORDERED: TRAZODONE HCL100 M1 PO (13:20)
[2017-12-22] MEDS ORDERED: TRILEPTAL300 M1 PO ×2 (13:20)
--- NOTE | 2017-12-22 13:58 | SOCIAL WORKER PROG NOTE PSYCH ---
Social Work Progress Note Faxed Referral(s) Referred To: [facility] Transition of Care Documents sent: Health Summary Faxed to: [facility] Fax #: [phone] Faxed by: Dixie Urias Date faxed: 12/22/17 Time Faxed: [phone]
--- NOTE | 2017-12-23 08:18 | DISCHARGE SUMMARY REPORT-PSYCH ---
Visit Information Visit Dates/Diagnosis' Admission Date: 12/18/17 Discharge Date: 12/22/17 Reason for Admission: The patient was admitted following a visit to the [facility]'s outpatient psychiatric services, reportedly for voicing thoughts of suicide. The patient was recently discharged from the intensive outpatient program. He relapsed on alcohol for 1 day which was his birthday 12/13/2019 When he presented for his intake appointment at the outpatient psychiatric services he indicated that he was having thoughts of suicide and was therefore sent to the emergency room via ambulance for further evaluation and treatment Psy Discharge Primary Diag: Unspecified Bipolar Psy Discharge Secondary Diag: Alcohol use Disorder, Developmental Disorder vs. Borderline Intellectual Functioning Hospital Course Significant Lab Findings: Lab Amphetamines Screen < 100 NG/ML 12/17/171706 Barbiturate Screen < 60 NG/ML 12/17/171706 Methadone Screen < 40 NG/ML 12/17/171706 Serum Alcohol < 10.0 MG/DL 12/17/171707 U Benzodiazepines Scrn < 85 NG/ML 12/17/171706 Ur Phencyclidine Scrn < 6.00 NG/ML 12/17/171706 Urine Cannabis Screen < 5.00 NG/ML 12/17/171706 Urine Cocaine Screen < 50 NG/ML 12/17/171706 Urine Opiates Screen < 100.00 NG/ML 12/17/171706 Course Complications: The patient did not have any complications while he was on the inpatient psychiatric unit Consultations: The patient had a history and physical examination while he was in the inpatient psychiatric unit Physical Exam General Appearance Alert, Oriented X3, Cooperative, No Acute Distress Skin No Rashes, No Breakdown, No Significant Lesion HEENT PERRLA, EOMI, Mucous Membr. moist/pink Neck Supple, No JVD, No thryomegaly, +2 Carotid Pulse wo Bruit, No LAD Lymphatic Axillary nl, Cervical nl Cardiovascular Regular Rate, No Murmurs Lungs Clear to Auscultation, Normal Air Movement Abdomen Soft, No Tenderness, No Hepatospenomegaly Neurological Exam Findings: Normal Gait, Normal Speech, Strength at 5/5 X4 Ext, Normal Tone, Sensation Intact, Cranial Nerves 3-12 NL, Reflexes 2+ Cranial Nerves II through XII: Intact Extremities No Cyanosis, No Edema, Normal Pulses Vascular Normal Pulses, Pulses Symmetrical Last 24 Hrs of Labs/Cameron: Laboratory Tests 12/17/17 1708: Anion Gap 16, Estimated GFR > 60, BUN/Creatinine Ratio 12.9, Glucose 92, Calcium 9.9, Total Bilirubin 0.3, AST 23, ALT 33, Alkaline Phosphatase 90, Total Protein 8.0, Albumin 5.0, Globulin 3.0, Albumin/Globulin Ratio 1.7, CBC w Diff NO MAN DIFF REQ, RBC 5.19, MCV 87.2, MCH 29.3, MCHC 33.7, RDW 13.1, MPV 7.7, Gran % 56.6, Lymphocytes % 32.8, Monocytes % 9.1, Eosinophils % 1.0, Basophils % 0.5, Absolute Granulocytes 3.2, Absolute Lymphocytes 1.8, Absolute Monocytes 0.5, Absolute Eosinophils 0.1, Absolute Basophils 0, Serum Alcohol < 10.0 Allergies: Coded Allergies: NO KNOWN ALLERGIES (09/28/16) Hospital Course/TX Response: The patient had a short stay on the inpatient psychiatric unit On Dec 18, 2017: Impression and Plan: 27-year-old single white male who was brought in to the emergency department by ambulance on police emergency examination request. He reportedly presented with thoughts of suicide. This may be related to him facing significant filler felony charges. He also reported reported relapse to alcohol on December 13, 2017. He reported worsening depression since his arrest - Include all active medical diagnosis that require tx DSM 5 Diagnosis(es): By history only bipolar disorder Alcohol use disorder Cannabis use disorder in remission - Initial Tx Plan for Active Psych & Medical Conditions Treatment Plan: Inpatient psychiatric care, 15 minute checks, nursing assessments education on vital signs by the nursing staff Group therapy and milieu therapy Continue medications as per IOP Aftercare planning and discharge planning by social work Patient will be evaluated daily by a psychiatrist On 12/19/2017 Increase Prozac to 60 mg daily (for the long-term management of anxiety as well as depression) Continue Trileptal 300 mg AM and 900 mg at bedtime Continue Trazodone 75 mg at bedtime The patient the patient was seen by Dr. Byrd on December 20 and 2017, she was the covering psychiatrist for that weekend, the only change made over the weekend was starting the patient on melatonin to help him with sleep, and Wellbutrin was reduced from 300 mg to 150 mg because of the patient's complaints about anxiety , all other medications and the treatment plan was continued the same On 12/22/2017 and the patient's Prozac was reduced back to 40 mg from 60 mg, he claimed that the increase the in the dose increases anxiety The patient's condition at the time of discharge in (Friday12/22/2017): The patient was alert and oriented to time place and person. The patient was sitting in his gait. He was cooperative and friendly. He showed normal psychomotor activity no abnormal or bizarre behaviors. His speech was normal. It was not slurred, nor pressured. He showed reasonable range of affect. He describes his mood as "okay". He denied having any thoughts of suicide or wishing . He denied having any violent thoughts or thoughts of homicide. He denied hallucinations. He denied feeling paranoid. There were no delusions during the interview. And there was no thought disorder during the interview. He seems to have chronic impairments in his judgments probably due to an underlying developmental disorder or borderline intellectual functioning. A family meeting with the social insurance adviser and his father took place before his discharge. Assessment: Taran is a 27-year-old single white male who was admitted because of concern about his suicidal statements following a relapse to all call her on his birthday. The patient insisted that there was a misunderstanding at the time of his intake and that he was referring to previous thoughts of suicide. However because of the reliability of the patient being questionable the patient was admitted for further safety evaluation and risk evaluation. On the inpatient unit he was compliant with medications and did not pose any behavioral problems.. He consistently denied thoughts of suicide violence or homicide. 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 Discharge disposition patient was discharged home with the plan of going back to the intensive outpatient program Discharge medications: Please see below Discharge HBIPS - Tobacco Use Treatment Offered Post DC Medications Offered: Refused Tob Medication Tx Post DC Tobacco Treatment Plan: Refused Tobacco Tx Pgm - EtOH/Drug Use D/O Treatment Offered Post DC Medications Offered: Med Not Indicated for D/O Post DC EtOH/SubAbuse TX Plan: Denis SubAbuse/Dual IOP Metabolic Screening - Screen if on a Neuroleptic Medication - Metabolic screening should include: - Blood Pressure, BMI, Glucose or Hgb A1c, & a - Lipid profile from within the past 365 days. Metabolic Screening ([X]) Not Applicable, patient not on a neuroleptic. Discharge Instructions General Discharge Information Multiple Neuroleptics: Not Applicable Discharge Diet Regular Discharge Activity Normal DC Disposition: Home Referrals Ordered Referrals Provider Referral 12/23/17 For Groups: [[facility]] [facility] Intensive Outpatient Program 12/23/17 10am [address] [place] [address] Provider Referral 12/24/17 For Groups: Outpatient Psychiatry [facility] Smoking Cessation group 12/24/17 4pm [address] [place] [address] Prescriptions Stop taking the following medications: Trazodone HCl (Trazodone HCl) 150 MG TABLET ORAL Every night Oxcarbazepine (Oxcarbazepine) 300 MG TABLET ORAL Every night Oxcarbazepine (Oxcarbazepine) 600 MG TABLET ORAL DAILY Qty = 60 Bupropion HCl (Bupropion XL) 150 MG TAB.ER.24H ORAL DAILY Qty = 30 Continue taking these medications: Fluoxetine HCl (Prozac) 40 MG CAPSULE 1 Capsule ORAL DAILY Comments: Last Taken:12/22/17 Time:1100 Start taking the following new medications: Oxcarbazepine (Trileptal) 300 MG TABLET 1 Tablet ORAL Every Morning Qty = 14 No Refills Comments: Last Taken:12/22/17 Time:0830 Oxcarbazepine (Trileptal) 300 MG TABLET 3 Tablet ORAL AT BEDTIME Qty = 60 No Refills Comments: Last Taken:12/21/17 Time:2300 Trazodone HCl (Trazodone HCl) 100 MG TABLET 100 Milligram ORAL AT BEDTIME Qty = 14 No Refills Comments: Last Taken:TO START TONIGHT 12/22/27 Time:RECEIVED 75MG AT 2300 ON 12/21/17 Copies To: [facility]
--- NOTE | 2017-12-23 08:23 | CP SOUTH PROGRESS NOTE PSYCH ---
Psych (Inpt) Progress Note Progress Note Mental Status Examination Fully mobile with steady gait, may have low average intelligence or borderline intellectual abilities, Cooperative, friendly, normal psychomotor activity, no bizarre or abnormal behaviors, normal speech: no slurring, not pressured, good range of affect, mood is okay today/denied feeling depressed, still feeling anxious, denied suicidal ideation, denied homicidal ideation, denied hallucinations, denied feeling paranoid, there were no delusions, no difficulties with thought organization, seems to have good insight, may have chronic impairments in judgment, oriented to time place and person, no significant deficits memory Impression and Plan: Taran is a 27-year-old single White male admitted after his outpatient intake appointment. Taran just recently completed the intensive outpatient program ( IOP) at [facility] on December 12, 2017. The day after was his Birthday and he drank. He reported that he was guilt-ridden about relapse as well as feeling very alone after discharge from IOP By history only bipolar disorder Alcohol use disorder Cannabis use disorder in remission F88: Global Developmental Delay Treatment Plan: Discharge Home
== END 2017-12-22 13:55 | DRG 885 ==
LOC: ERH 15:42 → ERHI 12-18 11:03 → CP SOUTH 12-18 11:03 → ENRESERV 12-18 11:17 → ENTRNSPT 12-18 11:18 → EDTRNSPTSTS 12-18 11:24 → EDTRNSPT 12-18 11:24 → CMPTRNSPT 12-18 11:34 → CP SOUTH 12-18 11:38
PROVIDERS: Physician Assistant
DX: F31.9 Bipolar disorder, unspecified (principal); Z72.89 Other problems related to lifestyle
CPT/HCPCS: 80307; G0463; G0480; J1200; J1630

== ENCOUNTER 2018-01-16 20:00 | Observation (INO) | payer OTHER ==
[~2018-01-16] VITALS: Ht 154.9 cm; Wt 108.4 kg
[~2018-01-16 20:00] MED LIST changes: +TRAZODONE HCL100 M1 PO; +TRILEPTAL300 M1 PO
[2018-01-16 20:22] LABS: ABSOLUTE BASOPHIL COUNT 0 /CUMM (0.0-0.2); ABSOLUTE EOSINOPHIL COUNT 0.1 /CUMM (0.0-0.7); ABSOLUTE GRANULOCYTE CT 3.5 /CUMM (1.4-6.5); ABSOLUTE LYMPH COUNT 2.3 /CUMM (1.2-3.4); ABSOLUTE MONOCYTE COUNT 0.7 /CUMM (0.10-0.60); BASOPHIL % 0.7 % (0.0-2.0); EOSINOPHIL % 2.1 % (0-5); GRANULOCYTE % 52.7 % (42.2-75.2); HEMATOCRIT 48.9 % (42-52); MEAN CORPUSCULAR HGB 29.1 PG (27.0-31.0); MEAN CORPUSCULAR HGB CONC 32.9 G/DL (33.0-37.0); MEAN CORPUSCULAR VOLUME 88.4 FL (80.0-94.0); MEAN PLATELET VOLUME 8.2 FL (7.4-10.4); PLATELET COUNT 337 /CUMM (130-400); RBC DISTRIBUTION WIDTH 14.5 % (11.5-14.5); RED BLOOD CELL CT 5.53 /CUMM (4.70-6.10); WHITE BLOOD CELL COUNT 6.6 /CUMM (4.8-10.8)
--- NOTE | 2018-01-16 20:44 | ED PSYCHIATRIC COMPLAINT ---
See Addendum History of Present Illness General Chief Complaint: Psychiatric Related Complaint Stated Complaint: +SI Source: patient, old records Exam Limitations: no limitations Vital Signs & Intake/Output Vital Signs & Intake/Output Vital Signs Date Time Temp Pulse Resp B/P B/P Pulse O2 O2 Flow FiO2 Mean Ox Delivery Rate 01/18 1637 97.2 83 18 122/60 100 Room Air / 1201 98.5 88 18 139/67 97 Room Air / 0629 98.8 91 18 130/75 100 Room Air / 0100 96.9 80 18 112/67 98 Room Air 01/17 2042 97.7 65 18 117/63 98 Room Air Allergies Coded Allergies: NO KNOWN ALLERGIES (09/28/16) Triage Note: PT TO ED C/O +SI THOUGHTS "MY BROTHER HAS MY GUNS AND I WOULD GO GET ONE" DENIES HI. ADMITS TO SNORTING COCAINE AT 1730. DENIES CHEST PAIN. ADMITS TO SMOKING MARIJUANA "ABOUT AN HOUR AGO" ADMITS TO DRINKING A PINT OF 100 PROOF VODKA DAILY OVER THE PAST YEAR. 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 HAS NOT BEEN COMPLIANT WITH BIPOLAR MEDS. GOES TO [facility], LAST WENT FRIDAY "I DIDN'T GO TODAY" HPI: 27M PMH bipolar disorder, polysubstance abuse, history of SI presents acutely intoxicated after smoking crack and marijuana, and drinking a pint of vodka. He wants detox and is afraid that he will drink too much. He reports SI but has no plan. Denies HI. No other complaints. (Hedy GENTILE,Michael) Reconcile Medications Bupropion HCl (Bupropion HCl Sr) 150 MG TABLET.ER 1 TAB PO QAM MENTAL HEALTH (Reported) Clonazepam 0.5 MG TABLET 1 TAB PO QPM SLEEP (Reported) Fluoxetine HCl (Prozac) 40 MG CAPSULE 2 CAP PO DAILY MENTAL HEALTH (Reported) Gabapentin 400 MG CAPSULE 1 CAP PO TID PRN MENTAL HEALTH (Reported) Naltrexone HCl (Unknown Strength) TABLET (Unknown Dose) UNKNOWN (Reported) Oxcarbazepine (Trileptal) 300 MG TABLET 1 TAB PO QAM mood Oxcarbazepine (Trileptal) 300 MG TABLET 3 TAB PO AT BEDTIME mood Prazosin HCl 1 MG CAPSULE 2 CAP PO QPM BP (Reported) Ramelteon (Rozerem) 8 MG TABLET 1 TAB PO QHS SLEEP (Reported) Trazodone HCl 100 MG TABLET 100 MG PO AT BEDTIME sleep Triage Nurses Notes Reviewed? yes (Pb GENTILE,Katharina) Past History Travel History Traveled to [place] past 21 day No Medical History Any Pertinent Medical History? 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 No (Michael Knott MD) Review of Systems Review of Systems Constitutional: Reports: no symptoms. EENTM: Reports: no symptoms. Respiratory: Reports: no symptoms. Cardiovascular: Reports: no symptoms. GI: Reports: no symptoms. Genitourinary: Reports: no symptoms. Musculoskeletal: Reports: no symptoms. Skin: Reports: no symptoms. Neurological/Psychological: Reports: no symptoms. Hematologic/Endocrine: Reports: no symptoms. Immunologic/Allergic: Reports: no symptoms. All Other Systems: Reviewed and Negative (Michael Knott MD) Physical Exam Physical Exam General Appearance: well developed/nourished, no apparent distress, intoxicated Head: atraumatic, normal appearance Eyes: Bilateral: normal appearance, PERRL, EOMI. Ears, Nose, Throat: normal pharynx, normal ENT inspection, hearing grossly normal Neck: normal inspection, supple Respiratory: normal breath sounds Cardiovascular: regular rate/rhythm Gastrointestinal: soft, non-tender Extremities: normal range of motion Neurological/Psychiatric: awake, alert Appearance/Memory/Insight: appropriate insight, disheveled Behavoir/Eye Contact/Speech: cooperative Thoughts/Hallucinations: normal thought pattern, no apparent hallucination Skin: intact, normal color, warm/dry SAD PERSONS Done? suicidal (Michael Knott MD) Progress Differential Diagnosis: dementia, drug intoxication, drug overdose, drug withdrawal, electrolyte abnormality, encephalitis, hypoglycemia, hypothyroidism, IC hem/mass/tumor, meningitis Plan of Care: Orders Procedure Date/time Status Restraint- Discontinue 01/18 0324 Active Restraint- Behavioral (Order) 01/18 0137 Active Current Medications Sig/Chiara Start time Last Medication Dose Stop Time Status Admin Trazodone HCl 100 MG AT BEDTIME 01/17 2200 AC 01/17 (Desyrel) 2023 Gabapentin 400 MG TID PRN 01/17 194 AC (Neurontin) (Michael Knott MD) Hand-Off Endorsed To: Lavell Stinson DO Endorsed Time: 0300 Pending: consult (CRISIS) (Katharina Ambriz MD) Comments: 01/17/2018 6:53:13 PM patient signed out to me by Dr. Stinson at shift gizzard skin remover at 7:00 this morning. Patient has had an uneventful emergency department stay during the day shift and will be signed out to Dr. Armstrong at shift gizzard skin remover. Bed search is in progress. (Lavell Blake MD) Hand-Off Endorsed To: Lavell Blake MD Endorsed Time: 0700 Pending: consult (crisis disposition) (Tereso Armstrong MD) Hand-Off Endorsed To: Katharina Ambriz MD Endorsed Time: 2300 Pending: consult (Linsey GENTILE,Helio Hare) Departure Departure Condition: Stable Referrals: Patient Has No Primary Care Dr (PCP/Family) Departure Forms: Customer Survey General Discharge Information (Michael Knott MD) Departure Disposition: STILL A PATIENT Clinical Impression Primary Impression: Suicidal ideation Secondary Impressions: Intoxication (Katharina Ambriz MD) Departure Comments 01/17/18 4:00 am ED observation reevaluation note. The patient was signed out to me by Dr. Ambriz at 3 AM. He is pending evaluation by crisis for suicidal ideation. On my evaluation he was awake and alert. He denied any complaints. He is being observed for suicidal ideation. He will be signed out to Dr. Blake at 7 AM. (Lavell Stinson DO) ED Attending Observation Initial Observation Note: I have seen and personally examined ANA LUNA on 01/16/18 at 2211. I agree with the current emergency department documentation. The disposition (admission or discharge) is uncertain at this time, he needs a period of observation for the following reason(s): [SOBRIETY, CIWA MONITORING, CRISIS CONSULTATION, CONTINUOUS OBSERVATION MONITOR, MONITOR I/O] The ED Nurse caring for this patient has been personally informed as to what the patient is being observed for. Observation Re-Evaluation: I have reevaluated ANA LUNA on 01/17/18 at 0054. The physical findings that support the continued need to observe this patient include [PATIENT SLEEPING, UTOX PENDING. WILL CONTINUE TO MONITOR.]. (Katharina Ambriz MD) Observation Re-Evaluation: I have reevaluated ANA LUNA on 01/18/18 at 0300. The physical findings that support the continued need to observe this patient include poor impulse control with violence. Attacked security requiring physical and chemical restraint for patient and staff safety.. (Tereso Armstrong MD) Observation Re-Evaluation: I have reevaluated ANA LUNA on 01/18/18 at 1911. The physical findings that support the continued need to observe this patient include [PT IS STILL SUICIDAL AND IS STILL UNDERGOIND PSYCHIATRIC EVALUATION IN THE ED. DISPO IS STILL PENDIONG.]. (Linsey GENTILE,Helio Hare) (Helio Stiles MD) I have reevaluated ANA LUNA on 01/17/18 at 0054. The physical findings that support the continued need to observe this patient include [PATIENT SLEEPING, UTOX PENDING. WILL CONTINUE TO MONITOR.]. (Katharina Ambriz MD) Observation Re-Evaluation: I have reevaluated ANA LUNA on 01/18/18 at 0300. The physical findings that support the continued need to observe this patient include poor impulse control with violence. Attacked security requiring physical and chemical restraint for patient and staff safety.. (Tereso Armstrong MD) I agree with the current emergency department documentation. The disposition (admission or discharge) is uncertain at this time, he needs a period of observation for the following reason(s): [SOBRIETY, CIWA MONITORING, CRISIS CONSULTATION, CONTINUOUS OBSERVATION MONITOR, MONITOR I/O] The ED Nurse caring for this patient has been personally informed as to what the patient is being observed for. Observation Re-Evaluation: I have reevaluated ANA LUNA on 01/17/18 at 0054. The physical findings that support the continued need to observe this patient include [PATIENT SLEEPING, UTOX PENDING. WILL CONTINUE TO MONITOR.]. (Pb GENTILE,Katharina)
[2018-01-16] MEDS ORDERED: CLONAZEPAM0.5 M2 PO (20:58)
[2018-01-16] MEDS ORDERED: NALTREXONE HCL50 M1 (20:58)
[2018-01-16] MEDS ORDERED: ROZEREM8 M1 PO (20:59)
[2018-01-16] MEDS ORDERED: BUPROPION HCL150 M4 PO (20:59)
[2018-01-16] MEDS ORDERED: GABAPENTIN400 M2 PO (20:59)
[2018-01-16] MEDS ORDERED: PRAZOSIN HCL1 M1 PO (21:00)
--- NOTE | 2018-01-17 10:59 | ED PSYCH CRISIS CONSULTATION ---
See Addendum Crisis Consult Basic Assessment Date of Consult: 01/17/18 Responsible Person/Accompanied By: Brought in by family Insurance Authorization: Insurance #1: Insurance name: BARBIE CERDA Phone number: Policy number: [id number] Group number: [id number] Authorization number: ED Provider: Patient's ED Provider: Lavell Stinson DO Primary Care Physician: Patient's PCP: Patient Has No Primary Care Dr PCP's Phone Number: Current Psychiatrist: [facility] at [facility] Chief Complaint: Psychiatric Related Complaint Patient's Quote: "Last night I was dirnking heavily andgot depressed." Present Illness: The patient is a 27 year old single, male who presented to the ED last evening, intoxicated and making suicidal statements. He was held over and evaluated this AM, when his BAL was .000. He presented alert, oriented, anxious and depressed with flat affect. He states that he is feeling better this AM and denies any current suicidal ideations. Of note, when he arrived last evening he stated that he would kill himself with his brothers gun, however now denies that his brother has a gun. He has a history of multiple suicide attempts, noting that his most recent was "a couple of years ago," when he tried to hang himself and his mother stopped him. His mother, Taryn Fowler ([phone]), stated that he recently bought a rope to kill himself and that his father had to take it away from him. When SW questioned him about the rope, he states that he bought it with the intention to kill himself and that "he does not know why he should live, when most people think he should " (based on his legal issues). He states that his depression and anxiety are both a 1 or 2 out of 10 ( 10 being the most severe). He denies any HI, AH, or VH. he denies feeling helpless or hopeless. He is currently in treatment at [facility] and [facility] at [place], which he did not attend yesterday, as he relapsed on alcohol. He states that he has been struggling with Bipolar Disorder and substance abuse issues for many years. He reports that yesterday was a one day relapse, in which he drank Vodka. He admits to using Marijuana occasionally noting that he uses every few months. He reports that his primary stressor is current legal issues, which are related to child pornography, noting that "its all a misunderstanding". He states that he has court schelduled for Friday (01/19/2018) and was very evasive about what he thinks the outcome will be. He states that he does anticipate that he will be incarcerated at some point. He initially wanted to be discharged home however, once he was told that the psychiatrist would like him to go inpatient, he agreed that it was the best plan of care. His mother, Taryn Fowler ([phone]), is very concerned about his safety and has found him to be increasingly depressed. Taryn states that she does not think that he is on the right medications. Taryn believes that the patient was going to use the rope, he bought, to kill himself and that he is not safe to be discharged. Taryn would like him to be placed inpatient. The [place]- Suicide Severity Rating Scale was completed with the patient. His risk factors are as follows; pending legal charges, history of interrupted suicide attempts, purchase of a rope to kill himself, feeling as a burden to family, feeling impulsive, substance abuse, feeling trapped, non-compliance with treatment and feeling irritable or agitated at times. His protective factors are as follows; "wanting to turn his life around," having a supportive mother and having a stable living environment. It is clear that his risk factors are greater then his protective factors at this time. Patient's Address: [address] [place] [address] Other Phone Number: Who Do You Live With? Family Family/Informants Interviewed: Mother- Taryn Fowler- [phone] Allergies - Coded Allergies: NO KNOWN ALLERGIES (09/28/16) Current Medications - Scheduled Medications Bupropion HCl (Bupropion HCl Sr) 150 MG TABLET.ER 1 TAB PO QAM MENTAL HEALTH # 14 (Reported) Entered as Reported by Holly Darnell on 01/16/182058 Clonazepam 0.5 MG TABLET 1 TAB PO QPM SLEEP (Reported) Entered as Reported by Holly Darnell on 01/16/182057 Fluoxetine HCl (Prozac) 40 MG CAPSULE 2 CAP PO DAILY MENTAL HEALTH (Reported) Entered as Reported by Holly Darnell on 03/07/17 2304 Oxcarbazepine (Trileptal) 300 MG TABLET 1 TAB PO QAM mood #14 TAB Prescribed by Richard Gaines MD on 12/22/17 Oxcarbazepine (Trileptal) 300 MG TABLET 3 TAB PO AT BEDTIME mood #60 TAB Prescribed by Richard Gaines MD on 12/22/17 Prazosin HCl 1 MG CAPSULE 2 CAP PO QPM BP #28 (Reported) Entered as Reported by Holly Darnell on 01/16/18 2100 Ramelteon (Rozerem) 8 MG TABLET 1 TAB PO QHS SLEEP #14 (Reported) Entered as Reported by Holly Darnell on 01/16/182058 Trazodone HCl 100 MG TABLET 100 MG PO AT BEDTIME sleep #14 TAB Prescribed by Richard Gaines MD on 12/22/17 Last Taken: Unknown Dose at an unknown date and time Scheduled PRN Medications Gabapentin 400 MG CAPSULE 1 CAP PO TID PRN MENTAL HEALTH #42 (Reported) Entered as Reported by Holly Darnell on 01/16/182058 Miscellaneous Medications Naltrexone HCl (Unknown Strength) TABLET (Unknown Dose) UNKNOWN #28 (Reported ) Entered as Reported by Holly Darnell on 01/16/182057 Laboratory Results: Laboratory Tests 01/17/18 0737: Urine Opiates Screen < 100, Methadone Screen < 40, Barbiturate Screen < 60, Ur Phencyclidine Scrn < 6.00, Amphetamines Screen 158, U Benzodiazepines Scrn < 85, Urine Cocaine Screen < 50, Urine Cannabis Screen 79.70 H, Urine Color YEL, Urine Clarity CLEAR, Urine pH 6.5, Ur Specific [place] 1.015, Urine Protein NEG, Urine Ketones NEG, Urine Nitrite NEG, Urine Bilirubin NEG, Urine Urobilinogen 0.2, Ur Leukocyte Esterase NEG, Ur Microscopic SEDIMENT EXAMINED, Urine RBC 3-5, Ur Epithelial Cells FEW, Urine Crystals RARE CA OX, Urine Bacteria RARE H, Urine Mucus MOD H, Urine Hemoglobin TRACE-INTACT H, Urine Glucose NEG 01/16/18 2015: Anion Gap 15, Estimated GFR > 60, BUN/Creatinine Ratio 11.3, Glucose 121 H, Calcium 9.1, Total Bilirubin 0.3, AST 17, ALT 23, Alkaline Phosphatase 87, Total Protein 7.4, Albumin 4.4, Globulin 3.0, Albumin/Globulin Ratio 1.5, CBC w Diff NO MAN DIFF REQ, RBC 5.53, MCV 88.4, MCH 29.1, MCHC 32.9 L, RDW 14.5, MPV 8.2, Gran % 52.7, Lymphocytes % 34.6, Monocytes % 9.9 H, Eosinophils % 2.1, Basophils % 0.7, Absolute Granulocytes 3.5, Absolute Lymphocytes 2.3, Absolute Monocytes 0.7 H, Absolute Eosinophils 0.1, Absolute Basophils 0, Serum Alcohol 200.0 Past History Past Medical History Neurological: NONE EENT: NONE Cardiovascular: hypertension Respiratory: NONE Gastrointestinal: NONE Hepatic: NONE Renal: NONE Musculoskeletal: NONE Psychiatric: bipolar disease, depression, substance abuse Endocrine: NONE Blood Disorders: NONE Cancer(s): NONE 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 He appears to have supportive parents that he resides with. Physical Limitations (Interventions): None noted Psychiatric Treatment History Psych Treatment Psychiatric Treatment Yes Inpatient Treatment Yes Outpatient Treatment Yes Location of Treatment [facility] and [facility] Reason for Treatment Bipolar Disorder and alcohol abuse Dates of Treatment Current with [facility] and [facility]. Last IP admission December 2017. Response to Treatment He states that he met with the [facility] team and they believe that he requires a higher level of care and that he should attend rehab, which he does not agree with. Diagnosis by History: Bipolar disorder Substance Use/Abuse History Drug Use/Abuse 1 Substances Used/Abused Yes Substance Used/Abused Alcohol First Use 10 or 11 years old Last Used Yesterday; 01/16/2018 How much used/taken Unclear, however he drank Vodka How often He states that this is his second relapse in 2 months. Route of use oral Drug Use/Abuse 2 Substances Used/Abused Yes Substance Used/Abused Marijuana First Use 10 years old Last Used yesterday; 01/16/2018 How much used/taken Unclear How often "every few months." For how long unclear Route of use inhalation Substance Abuse Treatment Substance Abuse Treatment Past Substance Abuse [place] Yes Inpatient Treatment No Outpatient Treatment Yes Location of Treatment Care and [facility] Reason for Treatment Alcohol abuse and Marijuana abuse. Dates of Treatment Current with and IOP at [place] Response to Treatment He has relapsed twice since being in [facility] and they have recommended that he be in a higher level of care. Comments: N/A Current Mental Status Mental Status Orientation: Person, Place, Situation Affect: Depressed, Hopeless, Sad Speech: WNL Neuro-vegetative: Sleep Disturbance, WNL (When he does not take his meds) Appearance Appearance- Dress/Hygiene: He was lying in bed, in hospital attire disheveled and unkempt. Behaviors Thought Process: WNL Thought Content: WNL Memory: WNL Insight: Poor SI/HI Risk Assessment Past Suicidal Ideation/Attempts Yes Current Suicidal Ideation/Att Yes Past Homicidal Ideation/Att: No Current Homicidal Ideation/Attempts No Degree of Intent: He made suicidal statements when he came in last evening, noting that he would kill himself with his brothers gun, which he denies this am. He initally denied all suicidal ideations until he was asked about the rope that he recently purchased and then he admitted that he bought it to kill himself. He stated that he does not know why he should live, when most people think he should (based on his legal charges). , Of note, in previous notes he has stated that he would kill himself before he would go to [facility] and has court pending for this 01/19/2018. Danger To: Others, Self Gravely Disabled: Poor Impulse Control Risk Factors: access to lethal means, high anxiety/distress, history of suicide atmpts, SA/MH hospitalized, substance abuse, isolate/no social support, poor impulse control, male, Pending legal issues. Lethality Ratin PTSD Checklist PTSD Done? patient declined (Denied history of abuse.) ED Management Sitter: Yes Restraints: Yes DSM5/PS Stressors/Medical Prob Diagnosis' (DSM 5, Stressors, Medical): F31.9 Unspecified Bipolar Disorder. F10.20 Alcohol use Disorder F12.20 Cannabis use Disorder Medical: High Blood Pressure Stressors: Pending legal issues. Current GAF: 25 Comments: N/A Departure Disposition Psych Medical Clearance Date: 01/17/18 Medically Cleared at: 0715 Time Started: 1000 Time Ended: 1100 Psychiatrist Consulted: Dr. Byrd Date Disposition Established: 01/17/18 Time Disposition Established: 1100 Plan for Disposition - Modality: Bed Search Contact: N/A Telephone: N/A Rationale for Disposition: The patient presented to the ED intoxicated and making suicidal statements. He admits to buying a rope with the intention of killing himself and has attempted to hang himself in the past, which was interrupted by his mother. He has been non-compliant with IOP and recently relpased on alcohol. He has pending legal charges that are related to child pornography charges. The case was discussed with Dr. Byrd and she finds him to be a risk to self and in need of an inpatient admission at this. There are no beds [facility] and therefore a bed search will be started. Type of IP Admission: PEC Additional Instructions: N/A Referrals Patient Has No Primary Care Dr (PCP/Family)
--- NOTE | 2018-01-18 12:22 | ED PSYCHIATRIST/APRN CONSULT ---
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 Continues to be sad, depressed, anxious about up coming legal proceedings as facing chcf time. He notes passive SI. MSE Older than stated age, cooperative, good eye contact, mood "depresed", affect congruent, irritable, non-labile, appropriate, linear and goal directed thought process, passive SI, denied HI, denied AVHs, I/J: limited Given acute worsening of depression and SI in the setting of legal difficulties, inpatient psychiatric stabalization needed. Bed search underway
[2018-01-19 12:10] VITALS: BP 136/81
== END 2018-01-19 13:03 ==
LOC: ERH 20:00 → ERHI 22:11 → ENTRNSPT 01-19 12:16 → EDTRNSPTSTS 01-19 12:30 → EDTRNSPT 01-19 12:30 → CMPTRNSPT 01-19 12:37 → ERHI 01-19 13:03
PROVIDERS: Physician Assistant Medical
DX: R45.851 Suicidal ideations (principal); F31.9 Bipolar disorder, unspecified; F17.200 Nicotine dependence, unspecified, uncomplicated; F19.10 Other psychoactive substance abuse, uncomplicated; F10.129 Alcohol abuse with intoxication, unspecified; I10 Essential (primary) hypertension; F32.9 Major depressive disorder, single episode, unspecified
CPT/HCPCS: 80307; 81001; 93005; 93010; 96372; G0378; G0463; G0480; J1200; J1630

== ENCOUNTER 2018-01-19 11:16 | Inpatient (IN) | payer OTHER ==
[~2018-01-19] VITALS: Ht 172.7 cm; Wt 110.2 kg
[2018-01-19] VITALS (7 sets, daily range): BP systolic 137–147; BP diastolic 75–98
[~2018-01-19 11:16] MED LIST changes: +BUPROPION HCL150 M4 PO; +CLONAZEPAM0.5 M2 PO; +GABAPENTIN400 M2 PO; +NALTREXONE HCL50 M1; +PRAZOSIN HCL1 M1 PO; +ROZEREM8 M1 PO
--- NOTE | 2018-01-19 11:26 | IP CRISIS DIAG ASSESS PSYCH ---
See Addendum Diagnostic Assessment Basic Assessment Insurance Authorization: Insurance #1: Insurance name: BARBIE NASH Phone number: Policy number: [id number] Group number: [id number] Authorization number: Primary Care Physician: Patient's PCP: Patient Has No Primary Care Dr PCP's Phone Number: Patient's Quote: "Last night I was drinking heavily andgot depressed" Present Illness: Per Crisis Consult on 01/17/18 written by Carie Marroquin: The patient is a 27 year old single, male who presented to the ED last evening, intoxicated and making suicidal statements. He was held over and evaluated this AM, when his BAL was .000. He presented alert, oriented, anxious and depressed with flat affect. He states that he is feeling better this AM and denies any current suicidal ideations. Of note, when he arrived last evening he stated that he would kill himself with his brothers gun, however now denies that his brother has a gun. He has a history of multiple suicide attempts, noting that his most recent was "a couple of years ago," when he tried to hang himself and his mother stopped him. His mother, Taryn Fowler ([phone]), stated that he recently bought a rope to kill himself and that his father had to take it away from him. When SW questioned him about the rope, he states that he bought it with the intention to kill himself and that "he does not know why he should live, when most people think he should " (based on his legal issues). He states that his depression and anxiety are both a 1 or 2 out of 10 ( 10 being the most severe). He denies any HI, AH, or VH. he denies feeling helpless or hopeless. He is currently in treatment at [facility] and [facility] at [place], which he did not attend yesterday, as he relapsed on alcohol. He states that he has been struggling with Bipolar Disorder and substance abuse issues for many years. He reports that yesterday was a one day relapse, in which he drank Vodka. He admits to using Marijuana occasionally noting that he uses every few months. He reports that his primary stressor is current legal issues, which are related to child pornography, noting that "its all a misunderstanding". He states that he has court scheduled for Friday (01/19/2018) and was very evasive about what he thinks the outcome will be. He states that he does anticipate that he will be incarcerated at some point. He initially wanted to be discharged home however, once he was told that the psychiatrist would like him to go inpatient, he agreed that it was the best plan of care. His mother, Taryn Fowler ([phone]), is very concerned about his safety and has found him to be increasingly depressed. Taryn states that she does not think that he is on the right medications. Taryn believes that the patient was going to use the rope, he bought, to kill himself and that he is not safe to be discharged. Taryn would like him to be placed inpatient. The [place]- Suicide Severity Rating Scale was completed with the patient. His risk factors are as follows; pending legal charges, history of interrupted suicide attempts, purchase of a rope to kill himself, feeling as a burden to family, feeling impulsive, substance abuse, feeling trapped, non-compliance with treatment and feeling irritable or agitated at times. His protective factors are as follows; "wanting to turn his life around," having a supportive mother and having a stable living environment. It is clear that his risk factors are greater then his protective factors at this time. Today, 01/19/18: Crisis re-evaluated patient this morning. Pt's first question was "are there any beds in [facility]". When he was told that information would not be known until later this morning (after 10 a.m.) he stated he was starting to go crazy in this room and he just wants to go home. Pt denies SI at this time. However he is unable to identify how his mood changed for the better over the weekend as he was isolated in the room. Pt reports he is in treatment at [facility] but missed Friday because he drank. Pt also see Yary Greene APRN at [facility] and Yary Trujillo at [facility]. Crisis spoke with Paola Alaniz LCSW @ [facility]. She consulted with Ana Cristina Rogers and [facility]'s recommendation is for him to go to Rehab post inpatient as he has relapsed twice recently- he was drinking in [facility] the week before last and missed IOP on 01/16/18 as he was drinking and depressed on 01/15/18. Otilio spoke with both of Taran's parents- Taryn Fowler who appears to be easily influenced by conversations with her son about whether he would benefit from inpatient hospitalization at this time or not. Taryn reports she was thinking that he needs inpatient but immediately asked if there were beds at [facility] and if not stated he could come home. We discussed how a LOC recommendation is not based on the availabilty of beds but on medical necessity for inpatient hospitalization. Otilio spoke with patient's father- Anupam Aleman ([phone]) who stated that he believes pt should be admitted. He shared that pt is supposed to meet with his learning and development officer tomorrow, 01/19/18. He stated he was going to walk over to the probation office to tell his PO, Tomas Burr that is he in the ED and will be admittedly psychiatrically. Otilio left a message for Tomas Burr, [phone]. Otilio spoke with Azucena Juarez, [facility], ([phone]) to inform her that pt is being admitted. She will inform his treaters at [facility]. Otilio consulted with Dr. Becerril and patient will be admitted to [facility] today due to risk factors for suicide out weighing protective factors. Patient's Address: [address] [place] [address] Other Phone Number: Who Do You Live With? Family Feel Safe Where You Live? Yes Marital Status: single Do You Have Children? No Primary Language? Albanian Family/Informants Interviewed: spoke with mother, father, IOP treaters and [facility] treaters Allergies - Coded Allergies: NO KNOWN ALLERGIES (09/28/16) Current Medications - Scheduled Medications Bupropion HCl (Bupropion HCl Sr) 150 MG TABLET.ER 1 TAB PO QAM MENTAL HEALTH # 14 (Reported) Entered as Reported by Holly Darnell on 01/16/182058 Clonazepam 0.5 MG TABLET 1 TAB PO QPM SLEEP (Reported) Entered as Reported by Holly Darnell on 01/16/182057 Fluoxetine HCl (Prozac) 40 MG CAPSULE 2 CAP PO DAILY MENTAL HEALTH (Reported) Entered as Reported by Holly Darnell on 03/07/17 2304 Oxcarbazepine (Trileptal) 300 MG TABLET 1 TAB PO QAM mood #14 TAB Prescribed by Richard Gaines MD on 12/22/17 Oxcarbazepine (Trileptal) 300 MG TABLET 3 TAB PO AT BEDTIME mood #60 TAB Prescribed by Richard Gaines MD on 12/22/17 Prazosin HCl 1 MG CAPSULE 2 CAP PO QPM BP #28 (Reported) Entered as Reported by Holly Darnell on 01/16/18 2100 Ramelteon (Rozerem) 8 MG TABLET 1 TAB PO QHS SLEEP #14 (Reported) Entered as Reported by Holly Darnell on 01/16/182058 Trazodone HCl 100 MG TABLET 100 MG PO AT BEDTIME sleep #14 TAB Prescribed by Richard Gaines MD on 12/22/17 Scheduled PRN Medications Gabapentin 400 MG CAPSULE 1 CAP PO TID PRN MENTAL HEALTH #42 (Reported) Entered as Reported by Holly Darnell on 01/16/182058 Miscellaneous Medications Naltrexone HCl (Unknown Strength) TABLET (Unknown Dose) UNKNOWN #28 (Reported ) Entered as Reported by Holly Darnell on 01/16/182057 Consequences of Psych Med Use: pt reports he does not take his prescribed medications consistantly Toxicology Screen Completed? Yes Results: positive Symptoms of Use: cannabis, etoh Past History Past Medical History Medical History: Hypertension Past Surgical History Surgical History non-contributory Abuse/Trauma History Trauma History/Current Trauma: Denies Legal History Current Legal Status: on probation Have you ever been arrested? 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 He appears to have supportive parents that he resides with. Physical Limitations (Interventions): None noted Psychiatric Treatment History Psych Treatment Psychiatric Treatment Yes Inpatient Treatment Yes Outpatient Treatment Yes Location of Treatment [facility], [facility], [facility] Reason for Treatment bipolar disorder Dates of Treatment multiple, last [facility] admission 12/18/17-12/22/17, Current [facility] Response to Treatment does not take prescribed psychiatric medications Diagnosis by History: Bipolar disorder Risk Factors: access to lethal means, high anxiety/distress, history of suicide atmpts, SA/MH hospitalized, substance abuse, isolate/no social support, poor impulse control, weapons access, male, Pending legal issues. Substance Use/Abuse History Drug Use/Abuse minimum 12mo Hx 1 Substances Used/Abused Yes Substance Used/Abused Alcohol First Use 12 Last Used 01/16/18 How much used/taken unk How often he reports two relapses in 2 months, IOP reports 2 in 2 weeks Route of use oral Drug Use/Abuse minimum 12mo Hx 2 Substances Used/Abused Yes Substance Used/Abused Marijuana First Use 12 Last Used 01/16/18 How much used/taken unk How often once every few months Substance Abuse Treatment Substance Abuse Treatment Past Substance Abuse [place] Yes Inpatient Treatment Yes Outpatient Treatment Yes Location of Treatment [facility] Dates of Treatment currently @ IOP Response to Treatment IOP recommending higher level of care Current Mental Status Mental Status Orientation: Person, Place, Situation Affect: Anxious Speech: Pressured Neuro-vegetative: Helpless Appearance Appearance- Dress/Hygiene: Pt presents in hospital attire. no remarkable features Behaviors Thought Process: Irrational Thought Content: WNL Memory: WNL Insight: Poor SI/HI Risk Assessment - Minimum 6mo History- Past Suicidal Ideation/Attempts Yes Current Suicidal Ideation/Att No Past Homicidal Ideation/Att: No Current Homicidal Ideation/Attempts No Risk Factors: access to lethal means, high anxiety/distress, history of suicide atmpts, SA/MH hospitalized, substance abuse, isolate/no social support, poor impulse control, male, Pending legal issues. Needs/Init [place] Plan/Goals: Medication Evaluation Comphrensive Psychosocial Assessment Increase Support System Increase Coping Skills/ Recovery Skills AUDIT-C Questionnaire: AUDIT-C Questionnaire: Response Value ETOH use in the past year 2-4 times/month 2 # drinks typical/day 5 or 6 2 6 or > drinks per occasion Monthly 2 Total 6 DSM5/PS Stressors/Medical Prob Diagnosis' (DSM 5, Stressors, Medical): F31.9 Unspecified Bipolar Disorder F10.20 Alcohol Use Disorder, Severe F1.20 Cannabis Use Disorder, Severe Hypertension Probation- pending felony charges- court 02/12/18 Current GAF: 25
--- NOTE | 2018-01-19 14:03 | CPS PROVIDER INIT ASMT PSYCH ---
Psychiatric Admission Counterintelligence Analyst's Note Reviewed: Yes Patient Seen and Examined: Yes Identifying Information: Taran Aleman is a 27-year-old single white male Chief Complaint: "I was drinking vodka heavily and I got depressed" Reaction to Hospitalization: The patient did not mind being hospitalized History of Present Illness Onset of Illness: The patient has been attending the intensive outpatient program since his discharge from Inpatient Psychiatry. He reported that he was doing well until Friday when he drank too much vodka became depressed and made suicidal statements. Circumstances Leading to Admission: Intoxication and making suicidal statements Problem(s) Justifying Need for Admission: Making a suicidal statement Past Psychiatric History Past Diagnosis(es)- if any: Reportedly having been diagnosed with bipolar disorder in the past Alcohol use disorder Cannabis use disorder Obesity Hypertension Past Precipitating Factors- if any: Relapse to alcohol - Include inpatient and outpatient treatment Treatment History: The patient was just recently at Inpatient Psychiatry he was admitted on December 18, 2017. After his discharge from the hospital he was doing the intensive outpatient program until Friday The patient has previous inpatient psychiatric admissions to [facility], [facility] and [facility] History of Suicide Attempts or Gestures The patient reportedly had 2 previous suicide attempts the first onereportedly was by attempted hanging at age 22, and the second 1 was by overdose on psychiatric medications. Substance Abuse History: Most recently it has been just alcohol Previous use included marijuana, LSD, Ice (reportedly methamphetamine in the pill form) Allergies: Coded Allergies: NO KNOWN ALLERGIES (09/28/16) Home Med List: Gabapentin, naltrexone, Prozac, Trileptal, Wellbutrin, trazodone, prazosin - Include any medical condition(s) that may - impact the patient's recovery/remission Past History Medical History Neurological: NONE EENT: NONE Cardiovascular: hypertension Respiratory: NONE Gastrointestinal: NONE Hepatic: NONE Renal: NONE Musculoskeletal: NONE Psychiatric: bipolar disease, depression, substance abuse Endocrine: NONE Blood Disorders: NONE Cancer(s): NONE 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 History of MRSA: No History of VRE: No History of CDIFF: No Influenza Vaccine: 12/18/17 Tetanus Vaccine: 04/30/17 Surgical History Surgical History: non-contributory Psychiatric Family/Social Hx Family History Psychiatric Illness: The patient's brother and trupdr-bppkonvgnk-fhvy bipolar Substance Use: Maternal grandfather had alcohol use disorder Suicides: There were no completed suicides among family members Social History Living Situation: The patient lives with his mother and his younger brother Significant Relationships (family/friends): Mother and younger brother, the patient also maintains contact with his father but he does not get along with him that well Education: GED Vocation/Occupation: And employed Legal: The patient has had a history of 2 arrests, may be facing felony charges Healthly Behaviors Screening Tobacco Screening Tobacco Use from ED Docu: Current Daily Use Daily Tobacco Use Amount/Type: => 5 Cigarettes daily - If tobacco counseling indicated - the following topics are required. - #1 Recognizing dangerous situations. - #2 Coping Skills. - #3 Basic information about quitting. Status of Tobacco Cessation Counseling: #1, #2 AND #3 Completed Cessation Med Status Nicotine Gum Ordered Alcohol Screening - ETOH screen POS if BAL >=80 or Audit-C>= M4/F3 Audit-C Score from Diag Assess: 6 Blood Alcohol Level: Lab Serum Alcohol 200.0 MG/DL 01/16/182014 Alcohol Use Screening Results: Pos per Audit C &/or BAL - If ETOH counseling indicated - the following topics are required. - #1 Express concern about the patient's - drinking at unhealthy levels, include informing - of national norms for moderate drinking: - men <= 14 drinks/week, max 4 drinks/occasion - women <= 7 drinks/week, max 3 drinks/occasion - #2 Providing feedback, including linking alcohol to - negative physical effects (liver injury, hypertension) - negative emotional effects (relationship problems and - depression) - negative occupational consequences (reduced work - performance) - #3 Advising the patient to abstain from alcohol or - to drink below national norms for moderate drinking - (as listed above). Status of ETOH Use Counseling: #1, #2 AND #3 Completed. Metabolic Screening - Screen if on a Neuroleptic Medication - Metabolic screening should include: - Blood Pressure, BMI, Glucose or Hgb A1c, & a - Lipid profile from within the past 365 days. Metabolic Screening Not Applicable, patient not on a neuroleptic. Exam and Plan Mental Status Examination Ambulation Status: Steady gait Appearance: Unremarkable appearance Attitude towards examiner: The patient was calm and cooperative Psychomotor activity: The patient showed normal psychomotor activity, no agitation, no retardation Behavior: The patient exhibited no abnormal or bizarre behaviors Quality of speech: The patient's speech was normal, not pressured, not slurred Affect: The patient showed full range of affect Mood: Patient denied feeling depressed now, he reported that he felt depressed because he had too much vodka on Friday Suicidal Ideation: He denies thoughts of suicide today Homicidal Ideation: The patient denied having any violent thoughts or thoughts of homicide Hallucinations: The patient denied hallucinations Paranoid/Delusional Material: The patient denied feeling paranoid, there were no delusions during the interview. Difficulties with thought organization: The patient was coherent, he did not have difficulties with thought organization , no thought disorder. Insight: The patient seems to have partial insight Judgment: The patient seems to have questionable judgment Orientation: Patient was alert and oriented to time place and person Cognition: The patient seems to have some difficulties with attention and concentration Memory Function: Patient did not show any evidence of short-term memory impairment Estimate of intellectual functioning: Borderline intellectual functioning Assets/Strengths Patient Identified Assets/Strengths: Patient seems to be likable, he has a supportive family Impression/Plan Impression and Plan: 27-year-old single white male who presents after relapsing to alcohol and voicing thoughts of suicide. He is known to Inpatient Psychiatry staff from previous admissions and has been with the intensive outpatient program since his most recent discharge which was less than a month ago - Include all active medical diagnosis that require tx DSM 5 Diagnosis(es): Unspecified depressive disorder Alcohol use disorder Cannabis use disorder in remission and Rule out substance-induced mood disorder with onset of symptoms during intoxication Borderline intellectual functioning Rule out autism spectrum disorder - Initial Tx Plan for Active Psych & Medical Conditions Treatment Plan: Inpatient psychiatric care Safety checks every 15 minutes Nursing assessments and vital signs Patient education Group therapy, activity therapy, and milieu therapy Session social work to do biopsychosocial assessment, obtain collateral information and set up aftercare plans Psychiatrist to evaluate patient's mental status daily and monitor medications daily The patient was resumed on the same medications that he was being treated with at the intensive outpatient program - Factors that would help patient function - in a less restrictive setting. Factors: Abstinence from alcohol
[2018-01-20 08:42] VITALS: BP 139/76
[2018-01-20 08:44] VITALS: BP 139/76
--- NOTE | 2018-01-20 11:14 | CP SOUTH PROGRESS NOTE PSYCH ---
Psych (Inpt) Progress Note Progress Note Laboratory Tests 01/20 621 Chemistry Hemoglobin A1c (4.2 - 5.8 %) 4.8 Vital Signs Date Time Temp Pulse Resp B/P B/P Pulse O2 O2 Flow FiO2 Mean Ox Delivery Rate 01/20 0844 97.3 92 139/76 / 0842 97.3 92 139/76 / 2229 97.5 80 143/80 03/05 195 97.5 80 143/80 03/ 195 97.5 80 143/80 03/05 1847 87 143/75 03/05 1617 81 144/98 03/05 1606 81 144/98 03/05 1448 77 137/78 03/05 1307 97.3 97 147/85 The patient was presented in the morning meeting. 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 He was calm and cooperative. He did not show any abnormal or bizarre behaviors. His speech was normal, it was not pressured, and it was not slurred. Taarn was coherent, there were no delusions and there was no thought disorder. He reported that he feels ready for discharge, indicating that he was in the emergency department since last Friday. He denied having any withdrawal symptoms and has not shown any withdrawal signs. He reported that his mood is "good" and he blamed his depression on consuming vodka the day he presented to the emergency room or the night before. He denied wishing , and he denied thoughts of suicide. He denied violent thoughts, and he denied thoughts of homicide. He denied hallucinations and he did not seem to be responding to internal stimuli. He did not show any evidence of short-term memory deficits, and he showed reasonable attention and concentration. He reported that he slept well last night. Seems to have some insights into certain aspects of his difficulties and partial insight regarding other things specifically his alcohol use. His judgment seems to be linked to her sobriety and he showed good judgment in hypothetical situations today. Assessment: Taran is a 27-year-old single white male who was admitted to the inpatient psychiatric unit after reportedly making suicidal statements while intoxicated. This is very similar to previous presentation to Inpatient Psychiatry not that long ago. Taran was finishing up his intensive outpatient program treatment at [facility] dual disorder IOP. Taran reports that he is doing better and he is not showing any withdrawal symptoms he reported that he has been in the emergency department for 3 days before he came down to the unit. It seems that he might be getting ready for discharge, his plan is not to go back to our IOP at [facility] but to pursue an IOP with care Plan: We discussed medication options, Taran indicated that he felt that last time that Wellbutrin was increased it was helpful in lifting up his mood and reducing his anxiety he reported the reason it was reduced back to 150 mg is that he started having difficulty sleeping but he would like to try it again at the 300 mg dose Route her in order to increase Wellbutrin and change it to WellbutrinXL 300 mg every morning starting tomorrow at 8 AM We will reevaluate daily for discharge, the patient seems to be ready for discharge as soon as we have a solid coherent aftercare plan
--- NOTE | 2018-01-20 12:18 | SOCIAL WORKER SOCIAL HX PSYCH ---
Social History Basic Assessment Primary Language? Maldivian Allergies - Coded Allergies: NO KNOWN ALLERGIES (09/28/16) Current Medications - Scheduled Medications Bupropion HCl (Bupropion HCl Sr) 150 MG TABLET.ER 1 TAB PO QAM MENTAL HEALTH # 14 (Reported) Entered as Reported by Holly Darnell on 01/16/182058 Last Taken: 01/15/18 1000 Clonazepam 0.5 MG TABLET 1 TAB PO QPM SLEEP (Reported) Entered as Reported by Holly Darnell on 01/16/182057 Last Taken: At an unknown date and time Fluoxetine HCl (Prozac) 40 MG CAPSULE 2 CAP PO DAILY MENTAL HEALTH (Reported) Entered as Reported by Holly Darnell on 03/07/172303 Last Taken: 01/15/18 1000 Oxcarbazepine (Trileptal) 300 MG TABLET 1 TAB PO QAM mood #14 TAB Prescribed by Richard Gaines MD on 12/22/17 Last Taken: 01/15/18 1000 Oxcarbazepine (Trileptal) 300 MG TABLET 3 TAB PO AT BEDTIME mood #60 TAB Prescribed by Richard Gaines MD on 12/22/17 Last Taken: At an unknown date and time Prazosin HCl 1 MG CAPSULE 2 CAP PO QPM BP #28 (Reported) Entered as Reported by Holly Darnell on 01/16/182099 Last Taken: At an unknown date and time Ramelteon (Rozerem) 8 MG TABLET 1 TAB PO QHS SLEEP #14 (Reported) Entered as Reported by Holly Darnell on 01/16/182058 Last Taken: 01/15/180 Trazodone HCl 100 MG TABLET 100 MG PO AT BEDTIME sleep #14 TAB Prescribed by Richard Gaines MD on 12/22/17 Last Taken: 01/18/18 2200 Scheduled PRN Medications Gabapentin 400 MG CAPSULE 1 CAP PO TID PRN MENTAL HEALTH #42 (Reported) Entered as Reported by Holly Darnell on 01/16/182058 Last Taken: 01/18/18 1000 Miscellaneous Medications Naltrexone HCl (Unknown Strength) TABLET (Unknown Dose) UNKNOWN #28 (Reported ) Entered as Reported by Holly Darnell on 01/16/182057 Last Taken: At an unknown date and time Past History Past Medical History Neurological: NONE EENT: NONE Cardiovascular: hypertension Respiratory: NONE Gastrointestinal: NONE Hepatic: NONE Renal: NONE Musculoskeletal: NONE Psychiatric: bipolar disease, depression, substance abuse Endocrine: NONE Blood Disorders: NONE Cancer(s): NONE 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 He appears to have supportive parents that he resides with. Physical Limitations (Interventions): None noted Psychiatric Treatment History Psych Treatment Inpatient Treatment Yes Outpatient Treatment Yes Location of Treatment [facility], [facility], [facility] Reason for Treatment bipolar disorder Dates of Treatment multiple, last CPS admission 12/18/17-12/22/17, Current IOP Response to Treatment does not take prescribed psychiatric medications Diagnosis: Bipolar disorder Risk Factors: access to lethal means, high anxiety/distress, history of suicide atmpts, SA/ hospitalized, substance abuse, isolate/no social support, poor impulse control, weapons access, male, Pending legal issues. Substance Use/Abuse History Drug Use/Abuse Substance Used/Abused Marijuana First Use 12 Last Used 01/16/18 How much used/taken unk How often once every few months Route of use oral Symptoms of Use: cannabis, etoh Substance Abuse Treatment Substance Abuse Treatment Inpatient Treatment Yes Outpatient Treatment Yes Location of Treatment [facility] Dates of Treatment currently @ IOP Response to Treatment IOP recommending higher level of care Current Mental Status Mental Status Orientation: Person, Place, Situation Affect: Anxious Speech: Pressured Neuro-vegetative: Helpless Appearance Appearance- Dress/Hygiene: Pt presents in hospital attire. no remarkable features Behaviors Thought Process: Irrational Thought Content: WNL Memory: WNL Insight: Poor SI/HI Risk Assessment Past Suicidal Ideation/Attempts Yes Current Suicidal Ideation/Att No Past Homicidal Ideation/Att: No Current Homicidal Ideation/Attempts No - Conclusion and Recommendations for treatment - and discharge planning
[2018-01-20 12:26] VITALS: BP 139/75
--- NOTE | 2018-01-20 13:30 | SOCIAL WORKER PROG NOTE PSYCH ---
See Addendum Social Work Progress Note Progress Note Taran reports that he has been ambivalent about taking his medications. Reported he "forgets" sometimes. He also stated he isn't happy with some of the medications side effects. Specifically weight gain. He doesn't feel happy with his current weight or the foods he feels he is eating more of ie- fast food, carbs. He stated he then drinks more frequently when not taking his meds. He said he has been drinking about 2x's a week. 4 shots- a pint of vodka. He would like to get the Vivotrol injection and possibly get a VNS if elegible. He denies being truly suicidal, but did discuss being hopeless at times due to feelings that he has ruined his life. He is consumed with his legal issues. He understands that he may have to do some fci time and accepts responsibility for his actions. He was also put on probation last year, due to misuse of the [employer] system. He said he woke up from a nightmare and thought there was someone with a gun and he called 911. Emergency personnel arrived with guns drawn and he ended up getting arrested. He feels he doesn't have an outlet to discuss his stressors. He doesn't want to talk about his legal issues in group and he would prefer to discuss those privately with a therapist. He is open to the idea of returning to see Yary Jose at [facility]. He doesn't want to go to rehab at this point. He stated he needs to go to court at the end of the month. He signed a release for me to speak with [facility] about follow up tx. Patient was able to identify consequences to drinking like: legal problems, increased hospitalizations, and spending money he doesn't have. He feels that drinking is a way to deal with his emotional problems and that it is an escape. He said he attended an AA last week in [place] and would like to continue to go to meetings. Taran and I were interrupted during the end of our meeting due to the medical doctor needing to do his H&P.
--- NOTE | 2018-01-20 14:05 | History & Physical ---
General Information and HPI History of Present Illness: This gentleman male was admitted again to the hospital because of alcohol abuse and feeling increasingly depressed and suicidal he does not have any clear precipitating factor for increased depression according to his own history report drinking a lot of movement in usual over last few days before coming to the hospital and wanted some help. He has a history of previous suicidal attempt to try to hang himself in the past and had been drinking for many years. He claimed that he has been going to [facility] and has been taking his medications regularly. For medical standpoint he's generally healthy in the past and denies any specific ongoing medical problems. He has not had any major surgeries except tonsillectomy in the past as a child. 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 He admits that he has not had any job for the last couple of months and he has moved in with his parents. He is single no and no children. He claims his father has diabetes and his parents are alive. Allergies/Medications Allergies: Coded Allergies: NO KNOWN ALLERGIES (09/28/16) Home Med list Bupropion HCl (Bupropion HCl Sr) 150 MG TABLET.ER 1 TAB PO QAM MENTAL HEALTH (Reported) Clonazepam 0.5 MG TABLET 1 TAB PO QPM SLEEP (Reported) Fluoxetine HCl (Prozac) 40 MG CAPSULE 2 CAP PO DAILY MENTAL HEALTH (Reported) Gabapentin 400 MG CAPSULE 1 CAP PO TID PRN MENTAL HEALTH (Reported) Naltrexone HCl (Unknown Strength) TABLET (Unknown Dose) UNKNOWN (Reported) Oxcarbazepine (Trileptal) 300 MG TABLET 1 TAB PO QAM mood Oxcarbazepine (Trileptal) 300 MG TABLET 3 TAB PO AT BEDTIME mood Prazosin HCl 1 MG CAPSULE 2 CAP PO QPM BP (Reported) Ramelteon (Rozerem) 8 MG TABLET 1 TAB PO QHS SLEEP (Reported) Trazodone HCl 100 MG TABLET 100 MG PO AT BEDTIME sleep Past History Travel History Traveled to [place] past 21 day No Medical History Neurological: NONE EENT: NONE Cardiovascular: hypertension Respiratory: NONE Gastrointestinal: NONE Hepatic: NONE Renal: NONE Musculoskeletal: NONE Psychiatric: bipolar disease, depression, substance abuse Endocrine: NONE Blood Disorders: NONE Cancer(s): NONE 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 Home Services at Home: None Review of Systems Review of Systems Constitutional: Denies: no symptoms. EENTM: Denies: no symptoms. Cardiovascular: Denies: no symptoms. Respiratory: Denies: no symptoms. GI: Denies: no symptoms. Genitourinary: Denies: no symptoms. Musculoskeletal: Denies: no symptoms. Skin: Denies: no symptoms. Neurological/Psychological: Reports: see HPI. All Other Systems: Reviewed and Negative Exam & Diagnostic Data Last 24 Hrs of Vital Signs/I&O Vital Signs Date Time Temp Pulse Resp B/P B/P Pulse O2 O2 Flow FiO2 Mean Ox Delivery Rate 01/20 1226 89 139/75 /06 0844 97.3 92 139/76 / 0842 97.3 92 139/76 /05 2229 97.5 80 143/80 03/05 195 97.5 80 143/80 / 195 97.5 80 143/80 03/05 1847 87 143/75 03/05 1617 81 144/98 03/05 1606 81 144/98 03/05 1448 77 137/78 Physical Exam General Appearance Alert, Oriented X3, Cooperative, No Acute Distress Skin No Rashes, No Breakdown, No Significant Lesion HEENT Atraumatic, PERRLA, EOMI, Mucous Membr. moist/pink Neck Supple, No JVD, No thryomegaly, +2 Carotid Pulse wo Bruit Lymphatic Cervical nl Cardiovascular Regular Rate, Normal S1, Normal S2, No Murmurs, Gallops, Rubs Lungs Clear to Auscultation, Normal Air Movement Abdomen Soft, No Tenderness, No Hepatospenomegaly, No Masses Neurological Exam Findings: Normal Gait, Normal Speech, Strength at 5/5 X4 Ext, Normal Tone, Cranial Nerves 3-12 NL, Reflexes 2+ Cranial Nerves II through XII: Within normal limits and intact Extremities No Clubbing, No Cyanosis, No Edema, Normal Pulses, No Tenderness/ Swelling Assessment/Plan Assessment: This young man is admitted again for increased depression and suicidal ideation along with alcohol abuse. He has had the similar problems in the past and has tried to commit suicide in the past. He reports that he has been taking his medications regularly and needs adjustment of his psychiatric medications. From medical standpoint he's fairly stable without any acute problems. Although he reports that he had high blood pressure in the past but his blood pressure is stable and does not require any treatment this time. His admission labs including CBC as well as electrolytes and liver function looking a little within normal limits and acceptable and he does not require any workup or treatment for medical standpoint at this time. As Ranked By This Provider Problem List: 1. Depression (emotion) 2. Alcohol abuse 3. Bipolar 1 disorder Miscellaneous Miscellaneous Documentation Attending Case Discussed With: Richard Gaines MD Primary Care Physician: Patient Has No Primary Care Dr Patient sees these Specialists none Level of Patient Care: KAREN Chan Attending MD Review Statement Attending Statement Attending MD Statement: reviewed EMR data (avail), discussed with nursing Attending Assessment/Plan: This gentleman is admitted for increased depression and alcohol abuse and has a long-standing history of previous depression and bipolar disorder. At present there is no acute medical problem and he's fairly stable from medical standpoint and does not need any workup or treatment.
[2018-01-20 16:08] VITALS: BP 142/73
[2018-01-20 20:02] VITALS: BP 141/75
[2018-01-21 07:38] VITALS: BP 141/70
--- NOTE | 2018-01-21 07:39 | CP SOUTH PROGRESS NOTE PSYCH ---
Psych (Inpt) Progress Note Progress Note Vital Signs: Temperature: 96.9F; pulse: 94 bpm; blood pressure 141/70 mmHg The patient's progress was discussed in the treatment team meeting. Mental status examination: The patient was alert and oriented to time, place, and person. The patient denied having any hallucinations. He did not seem to be responding to internal stimuli. He was calm and cooperative. He reported that his mood has been "okay" He denied thoughts of suicide he denied thoughts of violence and he denied thoughts of homicide. Assessment: The patient seems to be doing well presently and has not had thoughts of suicide for several days, he is ready for discharge as soon as his aftercare plans are solidly in place. Plan: Reduce Trileptal to 300 in the morning and 600 mg at bedtime Reduce trazodone to 75 mg at bedtime Continue other medications unchanged We will probably discharge tomorrow provided that aftercare plans are firmly in place
--- NOTE | 2018-01-21 10:17 | SOCIAL WORKER PROG NOTE PSYCH ---
See Addendum Social Work Progress Note Progress Note Taran and I met this morning. He reports doing well. Looking to discharge soon. Seems more talkative and happy today. He talked about self image and wanting to lose additional weight. He would ideally like to get down to 200 pounds. Talked about eating healthier foods. He tends to eat alot of beef. Talked about excercise as well. He continues to have negative self-talk/ poor self-esteem. He feels guilty over things he has done. Asked if he considers himself a spiritism/ spiritual person ? He said he was raised Bahai and his Mom goes to denominational on Sundays, but he hasn't been going. Asked if he considered going to confession? He said he thinks that may be a good idea and something he would consider. I asked if he would like to talk to anyone from pastoral care? He said he would like to talk to the Environmental Program Manager that comes to [place]. Reports speaking to him in the past and liked it. I told him I would check into his availability. Continued to discussion about involvement in AA and how he could meet sober connections there. He said he doesn't really have any sober friends and seems to attract people who drink. Talked about discharge for tomorrow possibly. Spoke with Dhruv Campbell from [facility]. He will be checking elegibility for VNS and get back to me. Called Mary at [facility] [phone] ext. [phone]. Due to today being a covered day and discharge pending for tomorrow there was no need to review today.
--- NOTE | 2018-01-21 12:05 | SOCIAL WORKER PROG NOTE PSYCH ---
Social Work Progress Note Progress Note Spoke with Corona of [facility] and asked for Queenie, the restrooms or lounges maid to meet with patient, per patient's request. Corona stated Queenie will be in tomorrow 01/22/18, he is not sure of his hours, but will pass along the message that Taran would like to speak with him again. Nursing is aware of this as well - left note at desk to pass on.
[2018-01-21 12:18] VITALS: BP 146/83
--- NOTE | 2018-01-21 13:00 | SOCIAL WORKER SOCIAL HX PSYCH ---
Social History Basic Assessment Insurance Authorization: Insurance #1: Insurance name: BAR[employer] Phone number: Policy number: [id number] Group number: [id number] Authorization number: [id number] Source of Income/Entitlements: n/a Primary Care Physician: Patient's PCP: Patient Has No Primary Care Dr PCP's Phone Number: Present Problem: Pt is a 27 year old male presenting in ans and a t-shirt stating, I am doing alright, I am leaving tomorrow. Pt denies SI/HI/AH/VH, on a scale of 1-10 (10 being the most severe) the pt rates his depression 1 or 2 and anxiety 4 or 5. Pt reports information that is inconsistent with previous reports. Pt reports his mother in 2010 and he owns a house he inherited. The pts mother has been involved with his treatment since he arrived at the ED. Pt presented with anxious mood and affect, paranoid, speech WNL, and poor judgement and insight. Pt asked this law writer multiple times if I would tell the other social workers what he said and "make me go to a rehab". Following note documented by Carie Marroquin [facility] 01/17/18 1202: The patient is a 27 year old single, male who presented to the ED last evening, intoxicated and making suicidal statements. He was held over and evaluated this AM, when his BAL was .000. He presented alert, oriented, anxious and depressed with flat affect. He states that he is feeling better this AM and denies any current suicidal ideations. Of note, when he arrived last evening he stated that he would kill himself with his brothers gun, however now denies that his brother has a gun. He has a history of multiple suicide attempts, noting that his most recent was "a couple of years ago," when he tried to hang himself and his mother stopped him. His mother, Taryn Fowler ([phone]), stated that he recently bought a rope to kill himself and that his father had to take it away from him. When SW questioned him about the rope, he states that he bought it with the intention to kill himself and that "he does not know why he should live, when most people think he should " (based on his legal issues). He states that his depression and anxiety are both a 1 or 2 out of 10 ( 10 being the most severe). He denies any HI, AH, or VH. he denies feeling helpless or hopeless. He is currently in treatment at [facility] and IOP at [place], which he did not attend yesterday, as he relapsed on alcohol. He states that he has been struggling with Bipolar Disorder and substance abuse issues for many years. He reports that yesterday was a one day relapse, in which he drank Vodka. He admits to using Marijuana occasionally noting that he uses every few months. He reports that his primary stressor is current legal issues, which are related to child pornography, noting that "its all a misunderstanding". He states that he has court schelduled for Friday (01/19/2018) and was very evasive about what he thinks the outcome will be. He states that he does anticipate that he will be incarcerated at some point. He initially wanted to be discharged home however, once he was told that the psychiatrist would like him to go inpatient, he agreed that it was the best plan of care. Primary Language? Kuwaiti Language(s) Spoken At Home: Kuwaiti Living Situation Rents or Owns Home? owns (reports inherited home) Feel Safe Where You Are Living Yes Feel Safe in Relationships? Yes Comments: The pt reprots his mother in 2010 and he inherited his home/money. The pt notes that he may be selling his house. His mother reported to ED crisis clinicians that the pt lives wither her and her in their home. Allergies - Coded Allergies: NO KNOWN ALLERGIES (09/28/16) Current Medications - Scheduled Medications Bupropion HCl (Bupropion HCl Sr) 150 MG TABLET.ER 1 TAB PO QAM MENTAL HEALTH # 14 (Reported) Entered as Reported by Holly Darnell on 01/16/182058 Last Taken: 01/15/18 1000 Clonazepam 0.5 MG TABLET 1 TAB PO QPM SLEEP (Reported) Entered as Reported by Holly Darnell on 01/16/182057 Last Taken: At an unknown date and time Fluoxetine HCl (Prozac) 40 MG CAPSULE 2 CAP PO DAILY MENTAL HEALTH (Reported) Entered as Reported by Holly Darnell on 04/21/17 2304 Last Taken: 01/15/18 1000 Oxcarbazepine (Trileptal) 300 MG TABLET 1 TAB PO QAM mood #14 TAB Prescribed by Richard Gaines MD on 12/22/17 Last Taken: 01/15/18 1000 Oxcarbazepine (Trileptal) 300 MG TABLET 3 TAB PO AT BEDTIME mood #60 TAB Prescribed by Richard Gaines MD on 12/22/17 Last Taken: At an unknown date and time Prazosin HCl 1 MG CAPSULE 2 CAP PO QPM BP #28 (Reported) Entered as Reported by Holly Darnell on 01/16/18 2100 Last Taken: At an unknown date and time Ramelteon (Rozerem) 8 MG TABLET 1 TAB PO QHS SLEEP #14 (Reported) Entered as Reported by Holly Darnell on 01/16/182058 Last Taken: 01/15/18 2200 Trazodone HCl 100 MG TABLET 100 MG PO AT BEDTIME sleep #14 TAB Prescribed by Richard Gaines MD on 12/22/17 Last Taken: 01/18/18 2200 Scheduled PRN Medications Gabapentin 400 MG CAPSULE 1 CAP PO TID PRN MENTAL HEALTH #42 (Reported) Entered as Reported by Holly Darnell on 01/16/182058 Last Taken: 01/18/18 1000 Miscellaneous Medications Naltrexone HCl (Unknown Strength) TABLET (Unknown Dose) UNKNOWN #28 (Reported ) Entered as Reported by Holly Darnell on 01/16/182057 Last Taken: At an unknown date and time Consequences of Psych Med Use: Pt continues to struggle with mood Past History Past Medical History Neurological: NONE EENT: NONE Cardiovascular: hypertension Respiratory: NONE Gastrointestinal: NONE Hepatic: NONE Renal: NONE Musculoskeletal: NONE Psychiatric: bipolar disease, depression, substance abuse Endocrine: NONE Blood Disorders: NONE Cancer(s): NONE DIRECTOR OF SEARCH ENGINE MARKETING/Reproductive: NONE Past Surgical History Surgical History: non-contributory /Family History Place/Country of Origin: [place], [place] Childhood Family Constellation: Mother, father, and one of his brothers. Pt notes his second brother has resided in a residential treatment since he was a child due to mental health. Primary Childhood Caretakers: father, mother Family Life During Childhood: The pt reports his childhood was "dissappointing" due to being bullied. Pt states he was a "weird kid" and "it got worse during puberty" DCF Involvement? No Relationship w/Mother: Pt reports he had a good relationship with his mother and that she is . His mother is alive and has been in contact with providers at [facility]. Father's Age (Current/): 61 Relationship w/Father: "good" Any Sibling(s)? Yes Sibling's Gender(s)/Age(s): male Sibling 1: (23), male Sibling 2: (33) Relationship w/Sibling(s): The pt reports he does not see his older brother who resides in a residential setting. The pt states he has a relationship with his younger brother although "can be a jerk" Relationship w/Friends: The pt reports having supportive friends. Pt states he has made friends in [facility] he has been attending. Family Psych/Sub Abuse/Add Hx: drug of choice, diagnosis Other Comments: The pt reports his brother has a mental health dx and is unsure of what it is. Pt reports grandfather (unclear on which side) has mental health and alcoholism. Abuse/Trauma History Trauma History/Current Trauma: Denies Legal History Pending Court Dates: Pt reports charged with disorderly conduct and misuse of emergency call. Have you ever been arrested Yes Number of Arrests: 2 Hx of Juvenile Legal Charges? Yes Hx of Adult Legal Charges? Yes If Yes: Unknown List/Date Most Recent Lgl Chgs: Unknown Chgs/Dts/Incarcerations/Sentnc Unknown Email Marketing Coordinator Tomas Burr Psychosocial History Primary Support System: friend Strengths/Capabilities: He is being treated at [facility] and [facility]. He appears to have supportive parents that he resides with. Reports a desire to stay sober. Weaknesses: The pt has a hx of multiple relapses and poor law reporter. Physical Limitations (Interventions): None noted Last Physical: 2011 History of Seizures? No History of Blackouts? No ADL Limitations: n/a [place]/Social/Peer Relations Pt reports having positive peer relations and states he recently made friends at [facility]. Meaningful Activities: enjoys TV, computer games, and dogs Childhood Baptist: Zoroastrianism Current Faith Affiliation: Atheist Is Spirituality Important to You? Pt denies Patient's Ethnicity: Jordanian, Ethiopian Cultural/Ethnic Issues: n/a Are There Developmental Issues? No Milestones Achieved: fine motor, gross motor Psychiatric Treatment History Psych Treatment Inpatient Treatment Yes Outpatient Treatment Yes Location of Treatment CPS, CARE, IOP Reason for Treatment bipolar disorder Dates of Treatment multiple, last [facility]PS admission 12/18/17-12/22/17, Current IOP Response to Treatment does not take prescribed psychiatric medications Diagnosis: Bipolar disorder Risk Factors: access to lethal means, high anxiety/distress, history of suicide atmpts, SA/MH hospitalized, substance abuse, isolate/no social support, poor impulse control, weapons access, male, Pending legal issues. Substance Use/Abuse History Drug Use/Abuse 1 Substance Used/Abused Marijuana First Use 12 Last Used 01/16/18 How much used/taken unk How often once every few months Route of use oral Drug Use/Abuse 2 Substance Used/Abused Crack Cocaine First Use 21 Last Used 21 How much used/taken unknown How often "a couple times" For how long "a couple times" Route of use inhalation Drug Use/Abuse 3 Substance Used/Abused Methamphetamines First Use 2015 Last Used 2015 How much used/taken "1 bowl" How often 1 x a month For how long unknown Route of use unknown Drug Use/Abuse 4 Substance Used/Abused Non-Prescribed Opiates First Use 20 Last Used unknown How much used/taken "3 80's a day for a couple days" How often unknown For how long unknown Route of use oral Have Had Periods of Sobriety? Yes Explain: Pt reports having 1-4 months of sobriety "here and there" Relapse History? Yes Explain: Pt reports having 1-4 months of sobriety "here and there" Have You Ever Attended AA? No Do You Attend AA Currently? No (reports he wants to start) Do You Have a Sponsor? No Symptoms of Use: cannabis, etoh Substance Abuse Treatment Substance Abuse Treatment Inpatient Treatment Yes Outpatient Treatment Yes Location of Treatment CPS, IOP Dates of Treatment currently @ IOP Response to Treatment IOP recommending higher level of care Sexual History Sexually Active Yes # of partners 1 Use of Protection No Sexual Concerns: n/a Education History Highest Level of Education: some college Highest Grade Completed: Classes at community [employer] Vocational Year Completed: unknown College Degree/Major: n/a Other Degree(s): Class B drivers license Preferred Learning Style: visual, auditory, experiential HX of Learning Difficulties: ADHD Barriers to Learning: None reported Special Communication Needs: None reported Employment History Employment Unemployed 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 of Jobs in Last 5 Years: 6 Attendance: Normal (Showed up drunk) Performance: Below Average History Have You Been in The ? No Current Mental Status Mental Status Orientation: Person, Place, Situation Affect: Anxious Speech: Pressured, WNL Neuro-vegetative: Concentration Poor, Energy Decreased, Sleep Disturbance Appearance Appearance- Dress/Hygiene: Pt presents in jeans and a t-shirt, no remarkable features Behaviors Thought Process: WNL Thought Content: Paranoid Memory: WNL Insight: Poor SI/HI Risk Assessment Past Suicidal Ideation/Attempts Yes Current Suicidal Ideation/Att No Past Homicidal Ideation/Att: No Current Homicidal Ideation/Attempts No Degree of Intent: None Gravely Disabled: Lack of Insight, Poor Impulse Control, Poor Judgment Risk Factors: High Anxiety/Distress, SA/MH Hospitalization(s), Hx of suicide attempt(s), Male, Poor impulse control, Substance Abuse Lethality Ratin - Conclusion and Recommendations for treatment - and discharge planning Summary: Pt reports he is ready for discharge, denies SI/HI/AH/VH. Pt reports being motivated to stay sober and plans to attend AA. This law writer reported to Dr. Gaines and Dixie Urias the inconsistent reports made by the pt.
[2018-01-21 15:33] VITALS: BP 144/81
[2018-01-21 19:21] VITALS: BP 146/68
[2018-01-22 07:39] VITALS: BP 136/79
--- NOTE | 2018-01-22 07:52 | CP SOUTH PROGRESS NOTE PSYCH ---
Psych (Inpt) Progress Note Progress Note Vital Signs: Temperature: 97.0F; pulse: 75 bpm; blood pressure 136/79 mmHg The patient's progress was discussed in the treatment team meeting. Mental status examination: Started by asking Taran about something he told the social work environmental health and safety intern yesterday about believing that his mother is when in fact she is not. Taran reported that he made up that story. He reported that he was bored, that he was asked these questions numerous times before, and that he was feeling bored because the interview went to0 long and then added "I do not know why I do these things, I guess sometimes I just fib" he was nonchalant about the whole matter Taran was alert and oriented to time, place, and person. The patient denied having any hallucinations & did not seem to be responding to internal stimuli. He was calm and cooperative. He reported that his mood has been "okay" He denied thoughts of suicide, denied thoughts of violence, and denied thoughts of homicide. Assessment: The patient seems to be doing well presently and has not had thoughts of suicide for several days, he is ready for discharge. Plan: Discharge Home Follow up with Care Plan: Reduce Trileptal to 300 in the morning and 600 mg at bedtime Reduce trazodone to 75 mg at bedtime Continue other medications unchanged We will probably discharge tomorrow provided that aftercare plans are firmly in place
[2018-01-22] MEDS ORDERED: NICORELIEF2 MG PO (08:17)
[2018-01-22] MEDS ORDERED: GABAPENTIN400 M2 PO (08:17)
[2018-01-22] MEDS ORDERED: PRAZOSIN HCL1 M1 PO (08:17)
[2018-01-22] MEDS ORDERED: NALTREXONE HCL50 M1 PO (08:17)
[2018-01-22] MEDS ORDERED: OXCARBAZEPINE300 M1 PO (08:17)
[2018-01-22] MEDS ORDERED: FLUOXETINE HCL40 M1 PO (08:19)
[2018-01-22] MEDS ORDERED: BUPROPION XL300 M1 PO (08:19)
[2018-01-22] MEDS ORDERED: TRAZODONE HCL50 M1 PO (08:21)
[2018-01-22] MEDS ORDERED: ROZEREM8 M1 PO (08:22)
--- NOTE | 2018-01-22 08:27 | Patient Discharge Instructions ---
Psych Discharge Inst General Discharge Information Reason for Admission: 27-year-old single white male who presents after relapsing to alcohol and voicing thoughts of suicide. Psy Discharge Primary Diag+ Unspecified Depressive DO Alcohol Use Disorder, Mod Psy Discharge Secondary Diag+ F84.0 Autism Spectru D.O. Summary Tests/Major Procedures Lab Amphetamines Screen 158 NG/ML 01/17/18 0737 Barbiturate Screen < 60 NG/ML 01/17/18 0737 Methadone Screen < 40 NG/ML 01/17/18 0737 Serum Alcohol 200.0 MG/DL 01/16/182014 U Benzodiazepines Scrn < 85 NG/ML 01/17/18 0737 Ur Amphetamines Screen NEGATIVE 08/03/122209 Ur Barbiturates Screen NEGATIVE 08/03/122209 Ur Phencyclidine Scrn < 6.00 NG/ML 01/17/18 0737 Urine Cannabis Screen 79.70 NG/ML H 01/17/18 0737 Urine Cocaine Screen < 50 NG/ML 01/17/18 0737 Urine Methadone Screen NEGATIVE 08/03/122209 Urine Opiates Screen < 100 NG/ML 01/17/18 0737 Studies Pending at DC: None Patient Instructions Contact Information Your Psychiatrist on [facility] was Richard Gaines MD * If you are experiencing an emergency related to this hospitalization, please call [phone] to contact the treating psychiatrist or the psychiatrist-on- call. * To Request a copy of your medical records, please contact the Medical Records Department at [phone]. * To request results of studies pending at the time of discharge, please call [phone]. * Continue your Medications until directed to stop by your Healthcare provider. General Medication Information Please continue to take your new medications and your continued home medications , unless otherwise indicated on your discharge medication list, or unless directed by your MD or SCRAP SAWYER to stop them. Special Instructions Diet Regular Activity Normal - Tobacco Use Treatment Offered Post DC Medications Offered: Script Given-See Med List Post DC Tobacco Treatment Plan: Refused Tobacco Tx Pgm - EtOH/Drug Use D/O Treatment Offered Post DC Medications Offered: Script Given-See Med List Post DC EtOH/SubAbuse TX Plan: Other SubAbuse/Dual Pgm Metabolic Screening Not Applicable, patient not on a neuroleptic. Advance Directives Does the Patient have Medical Advance Directives No/Refused further info Does Pt have Psychiatric Advance Directives? No/Refused further info Does Patient have a Designated Surrogate Decision Maker: No Information About Psychiatric Advance Directives Provided? Refused Discharge Plan Post Hospital Treatment Plan: Follow[facility]up with [facility]
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
--- NOTE | 2018-01-22 10:41 | DISCHARGE SUMMARY REPORT-PSYCH ---
Visit Information Visit Dates/Diagnosis' Admission Date: 01/19/18 Discharge Date: 01/22/18 Reason for Admission: 27-year-old single white male who presents after relapsing to alcohol and voicing thoughts of suicide. Psy Discharge Primary Diag: Unspecified Depressive DO Alcohol Use Disorder, Mod Psy Discharge Secondary Diag: F84.0 Autism Spectru D.O. Hospital Course Significant Lab Findings: Lab Amphetamines Screen 158 NG/ML 01/17/18736 Barbiturate Screen < 60 NG/ML 01/17/18736 Methadone Screen < 40 NG/ML 01/17/18736 Serum Alcohol 200.0 MG/DL 01/16/182014 U Benzodiazepines Scrn < 85 NG/ML 01/17/18736 Ur Phencyclidine Scrn < 6.00 NG/ML 01/17/18736 Urine Cannabis Screen 79.70 NG/ML H 01/17/18736 Urine Cocaine Screen < 50 NG/ML 01/17/18736 Urine Opiates Screen < 100 NG/ML 01/17/18736 Course Complications: No complications while the patient was on the inpatient psychiatric unit Consultations: The patient had a history and physical examination while he was on the inpatient psychiatric unit The patient was seen by Dr. Joseph Matthews MD, on 01/20/18 Assessment: From medical standpoint he's fairly stable without any acute problems. Although he reports that he had high blood pressure in the past but his blood pressure is stable and does not require any treatment this time. His admission labs including CBC as well as electrolytes and liver function looking a little within normal limits and acceptable and he does not require any workup or treatment for medical standpoint at this time. Allergies: Coded Allergies: NO KNOWN ALLERGIES (09/28/16) Hospital Course/TX Response: The patient was admitted to the inpatient psychiatric unit on January 19, 2018 He indicated that he was in the emergency room since Friday night January 16, 2018 and this was confirmed by the forestry aide Please see the emergency room notes, the crisis intervention notes as well as the daily notes of the psychiatrist covering the crisis intervention area for more's for more January 16 - January 18, 2018. On January 20 the patient wanted an increase in the Wellbutrin because he reported that he was still having low mood and some low energy as well and that he have found 300 mg of Wellbutrin helpful in the past. On January 21, 2018 the patient seems to be in good spirits on he reported that he feels ready for discharge. There were no thoughts of suicide and no thoughts of violence or homicide. The plan on January 21 was 2 reduce Trileptal to 300 in the morning and 600 mg at bedtime Reduce trazodone to 75 mg at bedtime Continue other medications unchanged We will probably discharge tomorrow provided that aftercare plans are firmly in place The patient's condition on the day of discharge (January 22, 2018): Vital Signs: Temperature: 97.0F; pulse: 75 bpm; blood pressure 136/79 mmHg The patient's progress was discussed in the treatment team meeting. Mental status examination: Started by asking Taran about something he told the social work journalism intern yesterday about believing that his mother is when in fact she is not. Taran reported that he made up that story. He reported that he was bored, that he was asked these questions numerous times before, and that he was feeling bored because the interview went to0 long and then added "I do not know why I do these things, I guess sometimes I just fib" he was nonchalant about the whole matter Taran was alert and oriented to time, place, and person. The patient denied having any hallucinations & did not seem to be responding to internal stimuli. He was calm and cooperative. He reported that his mood has been "okay" He denied thoughts of suicide, denied thoughts of violence, and denied thoughts of homicide. Assessment: The patient seems to be doing well presently and has not had thoughts of suicide for several days, he is ready for discharge. Plan: Discharge Home Follow up with [facility] Discharge HBIPS - Tobacco Use Treatment Offered Post DC Medications Offered: Script Given-See Med List Post DC Tobacco Treatment Plan: Refused Tobacco Tx Pgm - EtOH/Drug Use D/O Treatment Offered Post DC Medications Offered: Script Given-See Med List Post DC EtOH/SubAbuse TX Plan: Other SubAbuse/Dual Pgm Metabolic Screening - Screen if on a Neuroleptic Medication - Metabolic screening should include: - Blood Pressure, BMI, Glucose or Hgb A1c, & a - Lipid profile from within the past 365 days. Metabolic Screening Not Applicable, patient not on a neuroleptic. Discharge Instructions General Discharge Information Multiple Neuroleptics: Not Applicable Discharge Diet Regular Discharge Activity Normal DC Disposition: Discharge home, he lives with mother and brother Prescriptions Stop taking the following medications: Fluoxetine HCl (Prozac) 40 MG CAPSULE ORAL DAILY Oxcarbazepine (Trileptal) 300 MG TABLET ORAL Every Morning Qty = 14 Oxcarbazepine (Trileptal) 300 MG TABLET ORAL AT BEDTIME Qty = 60 Trazodone HCl (Trazodone HCl) 100 MG TABLET ORAL AT BEDTIME Qty = 14 Clonazepam (Clonazepam) 0.5 MG TABLET ORAL Every night Gabapentin (Gabapentin) 400 MG CAPSULE ORAL THREE TIMES DAILY as needed for MENTAL HEALTH Qty = 42 Bupropion HCl (Bupropion HCl Sr) 150 MG TABLET.ER ORAL Every Morning Qty = 14 Continue taking these medications: Ramelteon (Rozerem) 8 MG TABLET 1 Tablet ORAL TAKE AT BEDTIME Qty = 14 Comments: Last Taken:01/21/18 Time:2200 This prescription has been renewed Start taking the following new medications: Nicotine (Nicorelief) 2 MG GUM 2 Milligram ORAL EVERY 2 HOURS NEEDED as needed for cigarette cravings Qty = 60 No Refills Comments: Last Taken:01/22/18 Time:0600 Gabapentin (Gabapentin) 400 MG CAPSULE 400 Milligram ORAL EVERY SIX HOURS NEEDED as needed for ANXIETY/AGITATION /INSOMNIA Qty = 60 No Refills Comments: Last Taken:01/19/18 Time:1130 Bupropion HCl (Bupropion XL) 300 MG TAB.ER.24H 300 Milligram ORAL DAILY @8 AM Qty = 15 No Refills Comments: Last Taken:01/22/18 Time:0800 Oxcarbazepine (Oxcarbazepine) 300 MG TABLET 1 Tablet ORAL TWICE DAILY Qty = 60 No Refills Comments: Last Taken:01/22/18 Time:0800 Fluoxetine HCl (Fluoxetine HCl) 40 MG CAPSULE 1 Capsule ORAL Every Morning Qty = 30 No Refills Comments: Last Taken:01/22/18 Time:0800 Trazodone HCl (Trazodone HCl) 50 MG TABLET 1 Tablet ORAL Every night as needed for sleep Qty = 30 No Refills Comments: Last Taken:HAD 75MG 01/21/18 AT 2200 Time:TO START TONIGHT The following medications have been changed: Old: Naltrexone HCl (Naltrexone HCl) (Unknown Strength) TABLET Unknown Dose Qty = 28 New: Naltrexone HCl (Naltrexone HCl) 50 MG TABLET 50 Milligram ORAL Every Morning Qty = 28 Comments: Last Taken:01/22/18 Time:0800 Old: Prazosin HCl (Prazosin HCl) 1 MG CAPSULE 2 Capsule ORAL Every night Qty = 28 New: Prazosin HCl (Prazosin HCl) 1 MG CAPSULE 2 Capsule ORAL AT BEDTIME Qty = 28 Comments: Last Taken:01/21/18 Time:2200 Studies Pending at Discharge None Copies To: Юлия
--- NOTE | 2018-01-22 14:15 | SOCIAL WORKER PROG NOTE PSYCH ---
Social Work Progress Note Faxed Referral(s) 1 Referred To: [facility] Transition of Care Documents sent: Health Summary, W10 Faxed to: Care Fax #: [phone] Faxed by: Dixie Urias Date faxed: 01/22/18 Time Faxed: [phone] Faxed Referral(s) 2 Referred To: [facility] Transition of Care Documents sent: Health Summary, W10 Faxed to: [facility] Fax #: [phone] Faxed by: Dixie Urias Date faxed: 01/22/18 Time Faxed: [phone]
== END 2018-01-22 11:37 | DRG 881 ==
LOC: CP SOUTH 11:24
DX: F32.9 Major depressive disorder, single episode, unspecified (principal); F10.20 Alcohol dependence, uncomplicated; F84.0 Autistic disorder
CPT/HCPCS: 36415; 93005; 93010; J0515; J1630; J3490

== ENCOUNTER 2018-06-09 16:44 | Emergency (ER) | payer OTHER ==
[~2018-06-09] VITALS: Ht 172.7 cm; Wt 95.3 kg
[~2018-06-09 16:44] MED LIST changes: +BUPROPION XL300 M1 PO; +FLUOXETINE HCL40 M1 PO; +NALTREXONE HCL50 M1 PO; +NICORELIEF2 MG PO; +TRAZODONE HCL50 M1 PO
[2018-06-09 17:14] LABS: ABSOLUTE BASOPHIL COUNT 0 /CUMM (0.0-0.2); ABSOLUTE EOSINOPHIL COUNT 0.1 /CUMM (0.0-0.7); ABSOLUTE GRANULOCYTE CT 4.6 /CUMM (1.4-6.5); ABSOLUTE LYMPH COUNT 2.5 /CUMM (1.2-3.4); ABSOLUTE MONOCYTE COUNT 0.7 /CUMM (0.10-0.60); BASOPHIL % 0.5 % (0.0-2.0); EOSINOPHIL % 1.1 % (0-5); HEMATOCRIT 45.8 % (42-52); MEAN CORPUSCULAR HGB 30.3 PG (27.0-31.0); MEAN CORPUSCULAR HGB CONC 34.1 G/DL (33.0-37.0); MEAN CORPUSCULAR VOLUME 88.9 FL (80.0-94.0); MEAN PLATELET VOLUME 8.6 FL (7.4-10.4); PLATELET COUNT 320 /CUMM (130-400); RBC DISTRIBUTION WIDTH 13.4 % (11.5-14.5); RED BLOOD CELL CT 5.15 /CUMM (4.70-6.10); WHITE BLOOD CELL COUNT 7.9 /CUMM (4.8-10.8)
--- NOTE | 2018-06-09 17:29 | ED PSYCHIATRIC COMPLAINT ---
History of Present Illness General Chief Complaint: Psychiatric Related Complaint Stated Complaint: PER DAD " DRUNK AND AND TALKING STUPID" ?SI Source: patient, family Exam Limitations: intoxication Vital Signs & Intake/Output Vital Signs & Intake/Output Vital Signs Date Time Temp Pulse Resp B/P B/P Pulse O2 O2 Flow FiO2 Mean Ox Delivery Rate 06/10 1056 98.1 73 20 119/71 97 Room Air 06/10 0859 98.2 69 20 118/73 97 Room Air Room Air 06/10 0613 98.1 80 18 109/65 98 Room Air 06/10 0415 98.3 96 18 110/66 98 Room Air 06/10 0231 109 18 116/67 99 Room Air 06/09 2203 98.6 91 20 107/66 95 Room Air 06/09 2007 101 18 96/50 95 Room Air Room Air 06/09 1825 99.2 127 20 123/75 94 Room Air 06/09 1652 98.0 128 15 136/71 96 Room Air Room Air ED Intake and Output 06/10 0000 06/09 1200 Intake Total Output Total 400 Balance -400 Output, Urine 400 Patient 210 lb Weight Weight Reported by Patient Measurement Method Allergies Coded Allergies: No Known Allergies (06/09/18) Reconcile Medications Bupropion HCl (Bupropion XL) 300 MG TAB.ER.24H 300 MG PO 0800 Depression Fluoxetine HCl 40 MG CAPSULE 1 CAP PO QAM depression Gabapentin 400 MG CAPSULE 400 MG PO Q6P PRN ANXIETY/AGITATION/INSOMNIA Naltrexone HCl 50 MG TABLET 50 MG PO QAM Alcohol cravings Nicotine (Nicorelief) 2 MG GUM 2 MG PO Q2P PRN cigarette cravings Oxcarbazepine 300 MG TABLET 1 TAB PO BID mood stability Prazosin HCl 1 MG CAPSULE 2 CAP PO AT BEDTIME nightmares Ramelteon (Rozerem) 8 MG TABLET 1 TAB PO QHS SLEEP Trazodone HCl 50 MG TABLET 1 TAB PO QPM PRN sleep Triage Note: PT BROUGHT TO ED BY FATHER FOR "DRUNK AND I THINK HE'S HIGH AND HE NEEDS TO BE EVALUATED." PT ACTING INAPPROPRIATE IN TRIAGE, LAUGHING RANDOMLY. PT DENIES SI, BUT FATHER REPORTS PT HAS MADE SI COMMENTS IN THE PAST WITH MULTIPLE HOSPITAL ADMISSION. PT APPEARS VERY DRUNK IN TRIAGE BUT DENIES SI TO THIS RN. Triage Nurses Notes Reviewed? yes Onset: Abrupt Duration: constant Timing: single episode today Severity: severe Severity Numbers: 10 HPI: Patient is a 27-year-old male with a past medical history depression and alcohol abuse and bipolar disorder and suicide ideation in which patient was brought in by father for concerns of polysubstance abuse and suicidal thoughts, patient does admit to using pot brownies drinking alcohol and injecting IV heroin prior to arrival. He states that he has to be at his job at 9 PM History is limited due to patient's current clinical presentation of intoxication (Anupam Riggs) Past History Travel History Traveled to [place] past 21 day No Medical History Any Pertinent Medical History? 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 No (Anupam Riggs) Review of Systems Review of Systems Constitutional: Reports: no symptoms. EENTM: Reports: no symptoms. Respiratory: Reports: no symptoms. Cardiovascular: Reports: no symptoms. GI: Reports: no symptoms. Genitourinary: Reports: no symptoms. Musculoskeletal: Reports: no symptoms. Skin: Reports: no symptoms. Neurological/Psychological: Reports: see HPI. Hematologic/Endocrine: Reports: no symptoms. Immunologic/Allergic: Reports: no symptoms. All Other Systems: Reviewed and Negative (Anupam Riggs) Physical Exam Physical Exam General Appearance: intoxicated Head: atraumatic Eyes: Bilateral: normal appearance, PERRL. Ears, Nose, Throat: hearing grossly normal Neck: normal inspection, no midline tenderness Respiratory: normal breath sounds Cardiovascular: tachycardia Neurological/Psychiatric: anxious Appearance/Memory/Insight: disheveled Behavoir/Eye Contact/Speech: uncooperative, increased rate of speech Thoughts/Hallucinations: no apparent hallucination Skin: intact, normal color SAD PERSONS SAD PERSONS Response Value Male Sex? yes 1 Age <19 or >45 years? yes 1 Excessive Ethanol/Drug Use? yes 1 Single//? yes 1 Total 4 SAD PERSONS Done? yes (Anupam Riggs) Progress Differential Diagnosis: drug intoxication, drug overdose, drug withdrawal, electrolyte abnormality, encephalitis, hypoglycemia, hypothyroidism, IC hem/mass /tumor, meningitis Plan of Care: Orders Procedure Date/time Status Regular Diet 06/10 B Active Straight Cath 06/09 1828 Active Continuous Observation Monitor 06/09 1652 Active URINE DRUGS OF ABUSE 06/09 1652 Complete ETHANOL 06/09 1652 Complete COMPREHENSIVE METABOLIC PANEL 06/09 1652 Complete CBC WITHOUT DIFFERENTIAL 06/09 1652 Complete ED CRISIS PSYCH CONSULT 06/09 1652 Active Laboratory Tests 06/09/181657: Anion Gap 17 H, Estimated GFR > 60, BUN/Creatinine Ratio 11.1, Glucose 117 H, Calcium 9.6, Total Bilirubin 0.3, AST 16 L, ALT 18 L, Alkaline Phosphatase 76, Total Protein 7.2, Albumin 4.4, Globulin 2.8, Albumin/Globulin Ratio 1.6, CBC w Diff NO MAN DIFF REQ, RBC 5.15, MCV 88.9, MCH 30.3, MCHC 34.1, RDW 13.4, MPV 8.6 , Gran % 58.0, Lymphocytes % 31.4, Monocytes % 9.0, Eosinophils % 1.1, Basophils % 0.5, Absolute Granulocytes 4.6, Absolute Lymphocytes 2.5, Absolute Monocytes 0.7 H, Absolute Eosinophils 0.1, Absolute Basophils 0, Serum Alcohol 206.0 Patient upon initial presentation is noted be intoxicated or on multiple occasions patient was walking around in the hallway in the emergency room patient was told on medications to stay in his bed for fall prevention and the safety of others Patient then tried to elope from the emergency room where then due to his safety and others that calming agents were provided to the patient Patient is a hold IN the emergency room for concerns of polysubstance abuse and suicide ideation Discussed patient with Dr. Regan for handoff Hand-Off Endorsed To: Shereen GENTILE,Rakesh Aguirre Endorsed Time: 2252 Pending: consult (Anupam Riggs) Hand-Off Endorsed To: Rohan Sierra DO Endorsed Time: 07 Pending: consult (Rakesh Regan MD) Departure Departure Clinical Impression Primary Impression: Suicidal ideation Secondary Impressions: Alcohol abuse, Marijuana abuse Departure Forms: Customer Survey General Discharge Information (Anupam Riggs) PA/WIRELESS WATCHER Co-Sign Statement Statement: ED Attending supervision documentation- [] I saw and evaluated the patient. I have also reviewed all the pertinent lab results and diagnostic results. I agree with the findings and the plan of care as documented in the PA's/WIRELESS WATCHER's documentation. [x] I have reviewed the ED Record and agree with the PA's/WIRELESS WATCHER's documentation. [] Additions or exceptions (if any) to the PAs/WIRELESS WATCHER's note and plan are summarized below: [] (Shereen GENTILE,Rakesh Aguirre) Departure Time of Disposition: 1113 Disposition: HOME OR SELF CARE Condition: Stable Referrals: [facility] Additional Instructions: Please follow-up with the resources as provided by the crisis team at [facility]. (Rohan Sierra DO) Critical Care Note Critical Care Note Critical Care Time: 30-74 min (Anupam Riggs)
[2018-06-10 10:56] VITALS: BP 119/71
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
== END 2018-06-10 11:28 ==
LOC: ERH 16:44
PROVIDERS: Physician Assistant Medical
DX: R45.851 Suicidal ideations (principal); F10.10 Alcohol abuse, uncomplicated; F12.10 Cannabis abuse, uncomplicated
CPT/HCPCS: 80307; 96372; G0463; G0480; J1200; J1630

== ENCOUNTER 2018-06-27 20:26 | Emergency (ER) | payer OTHER | END 2018-06-27 20:46 | disposition admitted as inpatient to this hospital (09) | LOC: ERH 20:26 | DX: F32.9 Major depressive disorder, single episode, unspecified (principal) ==

== ENCOUNTER 2018-07-02 07:01 | Emergency (ER) | payer OTHER ==
[~2018-07-02] VITALS: Ht 172.7 cm; Wt 99.8 kg
--- NOTE | 2018-07-02 07:22 | ED CARDIAC/CP/PALPITATIONS ---
History of Present Illness General Chief Complaint: Chest Pain Stated Complaint: CHEST PAIN Source: patient Exam Limitations: poor historian (Extensive psych history) Allergies Coded Allergies: No Known Allergies (06/09/18) Reconcile Medications Bupropion HCl (Bupropion XL) 300 MG TAB.ER.24H 300 MG PO 0800 Depression Fluoxetine HCl 40 MG CAPSULE 1 CAP PO QAM depression Gabapentin 400 MG CAPSULE 400 MG PO Q6P PRN ANXIETY/AGITATION/INSOMNIA Naltrexone HCl 50 MG TABLET 50 MG PO QAM Alcohol cravings Nicotine (Nicorelief) 2 MG GUM 2 MG PO Q2P PRN cigarette cravings Oxcarbazepine 300 MG TABLET 1 TAB PO BID mood stability Prazosin HCl 1 MG CAPSULE 2 CAP PO AT BEDTIME nightmares Ramelteon (Rozerem) 8 MG TABLET 1 TAB PO QHS SLEEP Trazodone HCl 50 MG TABLET 1 TAB PO QPM PRN sleep Triage Note: 27YO MALE TO 10 VIA AMB FROM HOME W/CO "NAUSEA, TREMULOUS,SHAKINESS AND CHEST PAIN SINCE 0400." HX OF BIPOLAR,ANXIETY Triage Nurses Notes Reviewed? yes HPI: 27 year old male with history of hypertension, bipolar disorder, depression and on multiple antipsychotics, presented to the ED with chief complaint of chest pain and nausea since 4am this morning. The patient initially felt nauseous with a headache last night before going to bed and awoke early this morning with feelings of restlessness, tremulousness--"can't sit still", and 8 out of 10 throbbing chest pain located in the center of his chest, radiating up to his throat. The patient also endorses photophobia, palpitations, and had an episode of bilious vomiting during the interview. He denies changing the dose or frequency of any of his psychiatric medications, and also denies taking any street drugs specifically ecstasy. (Ayden GENTILE,Cristian) Vital Signs & Intake/Output Vital Signs & Intake/Output Vital Signs Date Time Temp Pulse Resp B/P B/P Pulse O2 O2 Flow FiO2 Mean Ox Delivery Rate 07/02 1142 98.1 97 20 133/76 98 Room Air 07/02 1017 98.0 93 20 145/84 99 Room Air 07/02 0823 87 20 140/88 96 Room Air 07/02 0711 95.7 93 20 140/83 98 Room Air Room Air (Lou GENTILE,Lavell Murray) Past History Travel History Traveled to [place] past 21 day No Medical History Any Pertinent Medical History? 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 No (Cristian Hensley MD) Review of Systems Review of Systems Constitutional: Reports: diaphoresis, fever, malaise. Respiratory: Denies: cough, hemoptysis, short of breath. Cardiovascular: Reports: chest pain, palpitations. GI: Reports: nausea, vomiting. Denies: abdominal pain. (Cristian Hensley MD) Physical Exam Physical Exam General Appearance: well developed/nourished, alert, awake, anxious, mild distress Eyes: Bilateral: photophobia, other (Pupils 7-8mm, reactive ). Respiratory: normal breath sounds, chest non-tender Cardiovascular: tachycardia Gastrointestinal: normal bowel sounds, soft, non-tender Neurologic/Psych: awake, alert, oriented x 3 Core Measures ACS in differential dx? Yes No ASA d/t Medical Contraindication CVA/TIA Diagnosis No Sepsis Present: No Sepsis Focused Exam Completed? No (Cristian Hensley MD) Progress Differential Diagnosis: AMI, aortic dissection, cholecystitis, hyperthyroid, musculoskeletal pain Diagnostic Imaging: Viewed by Me: Radiology Read. Discussed w/RAD: Radiology Read. Initial ED EKG: rate (tachycardic), no ST T wave changes (Cristian Hensley MD) Plan of Care: Orders Procedure Date/time Status TROPONIN LEVEL 07/02 1200 Complete EKG 07/02 1200 Active CBC WITHOUT DIFFERENTIAL 07/02 0803 Complete TSH REFLEX 07/02 0750 Complete TROPONIN LEVEL 07/02 0750 Complete COMPREHENSIVE METABOLIC PANEL 07/02 0750 Complete EKG 07/02 0715 Active Laboratory Tests 07/02/18 1133: Troponin I < 0.01 07/02/18 0927: Methadone Screen Cancelled, Barbiturate Screen Cancelled, Ur Phencyclidine Scrn Cancelled, Amphetamines Screen Cancelled, U Benzodiazepines Scrn Cancelled, Urine Cocaine Screen Cancelled, Urine Cannabis Screen Cancelled, Urine Color Cancelled, Urine Clarity Cancelled, Urine pH Cancelled, Ur Specific [place] Cancelled, Urine Protein Cancelled, Urine Ketones Cancelled, Urine Nitrite Cancelled, Urine Bilirubin Cancelled, Urine Urobilinogen Cancelled, Ur Leukocyte Esterase Cancelled, Ur Microscopic Cancelled, Urine Hemoglobin Cancelled, Urine Glucose Cancelled 07/02/18 0755: Anion Gap 11, Estimated GFR > 60, BUN/Creatinine Ratio 13.3, Glucose 105 H, Calcium 9.1, Total Bilirubin 0.5, AST 16 L, ALT 23, Alkaline Phosphatase 74, Troponin I 0.07, Total Protein 6.7, Albumin 4.0, Globulin 2.7, Albumin/Globulin Ratio 1.5, TSH &T3 &Free T4 Intrp 0.479, CBC w Diff NO MAN DIFF REQ, RBC 4.52 L , MCV 88.7, MCH 30.7, MCHC 34.7, RDW 13.0, MPV 8.3, Gran % 64.5, Lymphocytes % 24.8, Monocytes % 8.6, Eosinophils % 1.6, Basophils % 0.5, Absolute Granulocytes 3.6, Absolute Lymphocytes 1.4, Absolute Monocytes 0.5, Absolute Eosinophils 0.1, Absolute Basophils 0 (Lou GENTILE,Lavell Murray) Departure Departure Disposition: HOME OR SELF CARE Condition: Stable Clinical Impression Primary Impression: Nausea & vomiting Qualifiers: Vomiting type: bilious vomiting Qualified Code: R11.14 - Bilious vomiting Secondary Impressions: Nonspecific chest pain Referrals: Patient Has No Primary Care Dr (PCP/Family) Departure Forms: Customer Survey General Discharge Information (Cristian Hensley MD) Resident Co-Sign Statement Statement: ED Attending supervision documentation- [x] I saw and evaluated the patient. I have also reviewed all the pertinent lab results and diagnostic results. I agree with the findings and the plan of care as documented in the Resident's documentation. [] I have reviewed the ED Record and agree with the Resident's documentation. [] Additions or exceptions (if any) to the Resident's note and plan are summarized below: [] (Lou GENTILE,Lavell Murray) Critical Care Note Critical Care Note Critical Care Time: non-applicable (Ayden GENTILE,Cristian)
[2018-07-02 08:10] LABS: ABSOLUTE BASOPHIL COUNT 0 /CUMM (0.0-0.2); ABSOLUTE EOSINOPHIL COUNT 0.1 /CUMM (0.0-0.7); ABSOLUTE GRANULOCYTE CT 3.6 /CUMM (1.4-6.5); ABSOLUTE LYMPH COUNT 1.4 /CUMM (1.2-3.4); ABSOLUTE MONOCYTE COUNT 0.5 /CUMM (0.10-0.60); BASOPHIL % 0.5 % (0.0-2.0); EOSINOPHIL % 1.6 % (0-5); GRANULOCYTE % 64.5 % (42.2-75.2); HEMATOCRIT 40.1 % (42-52); MEAN CORPUSCULAR HGB 30.7 PG (27.0-31.0); MEAN CORPUSCULAR HGB CONC 34.7 G/DL (33.0-37.0); MEAN CORPUSCULAR VOLUME 88.7 FL (80.0-94.0); MEAN PLATELET VOLUME 8.3 FL (7.4-10.4); PLATELET COUNT 271 /CUMM (130-400); RED BLOOD CELL CT 4.52 /CUMM (4.70-6.10); WHITE BLOOD CELL COUNT 5.6 /CUMM (4.8-10.8)
--- NOTE | 2018-07-02 10:53 | RADIOLOGY REPORT ---
EXAMINATION: XR PORTABLE CHEST CLINICAL INFORMATION: Bilious vomiting. Nausea. Chest pain radiating to the throat. COMPARISON: Chest x-ray dated 10/04/2009 and 07/09/2008. TECHNIQUE: Portable AP semierect view of the chest was obtained. FINDINGS: The cardiomediastinal silhouette is within normal limits in size. Lungs bilaterally are symmetrically expanded and clear. No focal consolidation, effusion or pneumothorax is seen. Bony structures are unremarkable. IMPRESSION: Unremarkable examination.
[2018-07-02 13:14] VITALS: BP 130/80
== END 2018-07-02 13:14 ==
LOC: ERH 07:01
PROVIDERS: Student in an Organized Health Care Education/Training Program
DX: R11.2 Nausea with vomiting, unspecified (principal); R07.9 Chest pain, unspecified
CPT/HCPCS: 71045; 80307; 93005; 93010; 96374; 96375; J1885; J2405